=== PATIENT | female | born 1995 | race Caucasian/White ===

== ENCOUNTER 2018-03-12 10:01 | Emergency (ER) | payer OTHER ==
--- OUTSIDE RECORDS SUMMARY | 2018-03-12 10:03 | XMS REPORT ---
:1995 Author Organization eClinicalWorks Care Team Providers Name Role Phone Dao Pink Provider Role Unavailable Allergies, Adverse Reactions, Alerts Substance Reaction Event Type N.K.D.A. Info Not Available Non Drug Allergy Problems Problem Type Condition Code Onset Dates Condition Status Problem Depression with anxiety F41.8 Active Problem Elevated blood pressure reading R03.0 Active Problem PCOS (polycystic ovarian syndrome) E28.2 Active Assessment Sprain of right shoulder, S43.401A Active unspecified shoulder sprain type, initial encounter Problem Migraine without aura and with G43.001 Active status migrainosus, not intractable Problem Bipolar affective disorder, mixed F31.60 Active Medications Medication Code Code Instructions Start End Status Dosage System Date Date Metformin HCl [facility] 34138206548 500 MG Orally Active 1 tablet Once a day with a meal Diclofenac [facility] 51889593372 75 MG Orally February 05, Apr 06, Active 1 tablet Sodium Twice a day 2017 2017 with food or milk Treximet [facility] 69600744091 85-500 MG Orally Active not defined Trileptal [facility] 08493145605 600 MG Orally Active 1 tablet Twice a day NuvaRing [facility] 50920602297 0.12-0.015 Active 1 ring MG/24HR Vaginal Cambia [facility] 65652145879 50 MG Orally Active not defined Fluoxetine HCl [facility] 94568211125 40 MG Orally Active 1 capsule Once a day Results No Known Results Summary Purpose eClinicalWorks Submission
[2018-03-12] MEDS ORDERED: KETOROLAC 30 MG/ML INJ ONE (10:48)
[2018-03-12] MEDS ORDERED: CLINDAMYCIN IV 150 MG/ML (4 mL) VIAL ONE (10:50)
--- NOTE | 2018-03-12 10:52 | ER ---
Nurse's Notes [facility] Name: Marnie Ordaz Age: 22 yrs Sex: Female : 1995 Arrival Date: 03/12/2018 Time: 10:04 Bed 17 Private MD: Dao Pink Diagnosis: Cellulitis of left lower limb-foot Presentation: 03/12 10:10 Presenting complaint: Patient states: Left foot itching x 4 days, swelling x 2 days. hb Transition of care: patient was not received from another setting of care. Onset of symptoms was March 12, 2018. Risk Assessment: Do you want to hurt yourself or someone else? Patient reports no desire to harm self or others. Initial Sepsis Screen: Does the patient meet any 2 criteria? No. Patient's initial sepsis screen is negative. Does the patient have a suspected source of infection? No. Patient's initial sepsis screen is negative. Care prior to arrival: None. 10:10 Method Of Arrival: Ambulatory hb 10:10 Acuity: [place] 4 hb Triage Assessment: 10:25 General: Appears in no apparent distress. uncomfortable, Behavior is calm, cooperative, hj appropriate for age. Pain: Complains of pain in left foot. 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 - Social history:: Smoking status: Patient/guardian denies using tobacco. - Ebola Screening: : No symptoms or risks identified at this time. Screenin:25 Abuse screen: Denies threats or abuse. Denies injuries from another. Nutritional hj screening: No deficits noted. Tuberculosis screening: No symptoms or risk factors identified. Fall Risk None identified. Assessment: 10:25 Reassessment: see triage for assessment;. hj Vital Signs: 10:11 BP 142 / 91; Pulse 81; Resp 16; Temp 97.4; Pulse Ox 100% on R/A; Pain 0/10; hb 11:07 BP 120 / 89; Pulse 82; Resp 18; Pulse Ox 100% on R/A; hj ED Course: 10:04 Patient arrived in ED. sb2 10:04 Dao Pink MD is Private Physician. sb2 10:10 Nadia Clayton FNP-C [facility]. snw 10:10 Alex Biggs MD is Attending Physician. snw 10:11 Triage completed. hb 10:12 Arm band placed on left wrist. hb 10:24 Randy Chang, RN is Primary Nurse. hj 10:25 Patient has correct armband on for positive identification. Bed in low position. Call hj light in reach. Side rails up X 1. 10:50 Dao Pink MD is Referral Physician. snw 11:06 No provider procedures requiring assistance completed. Patient did not have IV access hj during this emergency room visit. Administered Medications: 10:40 Drug: Clindamycin 600 mg Route: IM; Site: left deltoid; hj 10:55 Follow up: Response: No adverse reaction hj 10:40 Drug: TORadol 60 mg Route: IM; Site: right deltoid; hj 10:55 Follow up: Response: No adverse reaction; Pain is decreased hj Outcome: 10:51 Discharge ordered by . snw 11:06 Discharged to home ambulatory. hj 11:06 Condition: stable 11:06 Discharge instructions given to patient, Instructed on discharge instructions, follow up and referral plans. medication usage, Demonstrated understanding of instructions, follow-up care, medications, Prescriptions given X 2. 11:07 Patient left the ED. hj Signatures: Nadia Clayton FNP-C CRYSTAL GROWING TECHNICIAN-Csnw Randy Chang RN RN Dilia Miller RN RN Suzanne Tom sb2
--- NOTE | 2018-03-12 10:52 | EDPHYS ---
Physician Documentation [facility] Name: Marnie Ordaz Age: 22 yrs Sex: Female : 1995 Arrival Date: 03/12/2018 Time: 10:04 Bed 17 Private MD: Dao Pink ED Physician Alex Biggs HPI: 03/12 10:44 This 22 yrs old Female presents to ER via Ambulatory with complaints of Foot snw Pain. 10:44 The patient presents with pain, swelling, tenderness. The complaints affect the medial snw aspect of left foot. Context: The problem was sustained at home, resulted from an unknown cause, the patient can partially bear weight, the patient is able to ambulate. Onset: The symptoms/episode began/occurred suddenly. Associated signs and symptoms: Pertinent positives: swelling, warmth, of the arch of left foot. Treatment prior to arrival includes: no previous treatment. Severity of symptoms: At their worst the symptoms were moderate, severe. The patient has not experienced similar symptoms in the past. It is unknown whether or not the patient has recently seen a physician. 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 - Social history:: Smoking status: Patient/guardian denies using tobacco. - Ebola Screening: : No symptoms or risks identified at this time. ROS: 10:42 Constitutional: Negative for fever, chills, and weight loss, Eyes: Negative for injury, snw pain, redness, and discharge, ENT: Negative for injury, pain, and discharge, Neck: Negative for injury, pain, and swelling, Cardiovascular: Negative for chest pain, palpitations, and edema, Respiratory: Negative for shortness of breath, cough, wheezing, and pleuritic chest pain, Abdomen/GI: Negative for abdominal pain, nausea, vomiting, diarrhea, and constipation, Back: Negative for injury and pain, : Negative for injury, bleeding, discharge, and swelling, MS/Extremity: Negative for injury and deformity, Neuro: Negative for headache, weakness, numbness, tingling, and seizure, Psych: Negative for depression, anxiety, suicide ideation, homicidal ideation, and hallucinations. 10:42 Skin: Positive for swelling, redness and itching to sole of left foot. Exam: 10:42 Constitutional: This is a well developed, well nourished patient who is awake, alert, snw and in no acute distress. Head/Face: Normocephalic, atraumatic. Eyes: Pupils equal round and reactive to light, extra-ocular motions intact. Lids and lashes normal. Conjunctiva and sclera are non-icteric and not injected. Cornea within normal limits. Periorbital areas with no swelling, redness, or edema. ENT: Nares patent. No nasal discharge, no septal abnormalities noted. Tympanic membranes are normal and external auditory canals are clear. Oropharynx with no redness, swelling, or masses, exudates, or evidence of obstruction, uvula midline. Mucous membranes moist. Neck: Trachea midline, no thyromegaly or masses palpated, and no cervical lymphadenopathy. Supple, full range of motion without nuchal rigidity, or vertebral point tenderness. No Meningismus. Chest/axilla: Normal chest wall appearance and motion. Nontender with no deformity. No lesions are appreciated. Cardiovascular: Regular rate and rhythm with a normal S1 and S2. No gallops, murmurs, or rubs. Normal PMI, no JVD. No pulse deficits. Respiratory: Lungs have equal breath sounds bilaterally, clear to auscultation and percussion. No rales, rhonchi or wheezes noted. No increased work of breathing, no retractions or nasal flaring. Abdomen/GI: Soft, non-tender, with normal bowel sounds. No distension or tympany. No guarding or rebound. No evidence of tenderness throughout. Back: No spinal tenderness. No costovertebral tenderness. Full range of motion. MS/ Extremity: Pulses equal, no cyanosis. Neurovascular intact. Full, normal range of motion. Neuro: Awake and alert, GCS 15, oriented to person, place, time, and situation. Cranial nerves II-XII grossly intact. Motor strength 5/5 in all extremities. Sensory grossly intact. Cerebellar exam normal. Normal gait. Psych: Awake, alert, with orientation to person, place and time. Behavior, mood, and affect are within normal limits. 10:42 Skin: Appearance: normal except for affected area, cellulitis, that is mild, well demarcated, on the sole of left foot with lymphangitis. Vital Signs: 10:11 BP 142 / 91; Pulse 81; Resp 16; Temp 97.4; Pulse Ox 100% on R/A; Pain 0/10; hb 11:07 BP 120 / 89; Pulse 82; Resp 18; Pulse Ox 100% on R/A; hj MDM: 10:30 Patient medically screened. snw 10:53 Data reviewed: vital signs, nurses notes. Data interpreted: Pulse oximetry: on room air snw is 100 %. Interpretation: normal. Counseling: I had a detailed discussion with the patient and/or guardian regarding: the historical points, exam findings, and any diagnostic results supporting the discharge/admit diagnosis, the presence of at least one elevated blood pressure reading (>120/80) during this emergency department visit, the need for outpatient follow up, to return to the emergency department if symptoms worsen or persist or if there are any questions or concerns that arise at home. Special discussion: I have referred the patient to see his PCP for further evaluation of high blood pressure. I discussed in detail with the patient the higher chance of wound infection based on his presenting history. Based on the history and exam findings, there is no indication for further emergent testing or inpatient evaluation. I discussed with the patient/guardian the need to see the primary care provider for further evaluation of the symptoms. Administered Medications: 10:40 Drug: Clindamycin 600 mg Route: IM; Site: left deltoid; hj 10:55 Follow up: Response: No adverse reaction hj 10:40 Drug: TORadol 60 mg Route: IM; Site: right deltoid; hj 10:55 Follow up: Response: No adverse reaction; Pain is decreased hj Disposition: 15:28 Co-signature as Attending Physician, Alex Biggs MD I agree with the assessment and mian plan of care. Disposition: 03/12/18 10:51 Discharged to Home. Impression: Cellulitis of left lower limb - foot. - Condition is Stable. - Discharge Instructions: Cellulitis, Adult, Hypertension, Lymphangitis, Adult. - Prescriptions for Clindamycin HCl 300 mg Oral Capsule - take 1 capsule by ORAL route every 6 hours for 10 days; 40 capsule. Diclofenac Sodium 75 mg Oral Tablet Sustained Release - take 1 tablet by ORAL route 2 times per day; 30 tablet. - Work release form, Medication Reconciliation Form, Thank You Letter, Antibiotic Education, Prescription Opioid Use form. - Follow up: Dao Pink MD; When: 1 - 2 days; Reason: Recheck today's complaints, Continuance of care, Re-evaluation by your physician. Follow up: Emergency Department; When: As needed; Reason: Worsening of condition. Signatures: Alex Biggs MD MD cha Therrien, Shelly, FUSING FURNACE LOADER-C FUSING FURNACE LOADER-Csnw Randy Chang, VIJAYA RN Dilia Miller RN RN Corrections: (The following items were deleted from the chart) 11:07 10:51 03/12/2018 10:51 Discharged to Home. Impression: Cellulitis of left lower limb - hj foot. Condition is Stable. Forms are Medication Reconciliation Form, Thank You Letter, Antibiotic Education, Prescription Opioid Use. Follow up: Dao Pink; When: 1 - 2 days; Reason: Recheck today's complaints, Continuance of care, Re-evaluation by your physician. Follow up: Emergency Department; When: As needed; Reason: Worsening of condition. snw
[2018-03-12 11:28] VITALS: TEMP 97.4; O2SAT 100
[2018-03-12 11:29] VITALS: BP 120/89
== END 2018-03-12 11:07 | disposition home or self-care (01) ==
LOC: ER 10:01
DX: L03.116 Cellulitis of left lower limb (principal)
CPT/HCPCS: 96372; 99283; S0077

== ENCOUNTER 2018-10-24 15:37 | Emergency (ER) | payer OTHER ==
--- OUTSIDE RECORDS SUMMARY | 2018-10-24 15:43 | XMS REPORT ---
[...] Status Dosage System Date Date Metformin HCl [facility] 05492391530 500 MG Orally Active 1 tablet Once a day with a meal Diclofenac [facility] 48010445466 75 MG Orally February 05, Apr 06, Active 1 tablet Sodium Twice a day 2017 2017 with food or milk Treximet [facility] 28142479727 85-500 MG Orally Active not defined Trileptal [facility] 20657037192 600 MG Orally Active 1 tablet Twice a day NuvaRing [facility] 84264836892 0.12-0.015 Active 1 ring MG/24HR Vaginal Cambia [facility] 33485571425 50 MG Orally Active not defined Fluoxetine HCl [facility] 32904211639 40 MG Orally Active 1 capsule Once a day Results No Known Results Summary Purpose eClinicalWorks Submission
--- OUTSIDE RECORDS SUMMARY | 2018-10-24 15:43 | XMS REPORT | Continuity of Care Document ---
:1995 Author Organization [facility] Address [address] [place] [address] Phone Unavailable Care Team Providers Name Role Phone SOLA MANNING MD Primary Care Physician Insurance Providers Guarantor Isaias Ordaz Address [address] [place] [address] Payer [facility] - Other Policy Number [id number] Subscriber's Name Sanju Turner Relationship Family/Other Group Number [id number] Group Name [employer] Advance Directives Directive Response Recorded Date/Time Name of Surrogate/Decision Maker NA 07/10/18 9:34am Patient/Family Given Education Material R/T Y - KR...07/10/18 07/10/18 9: 34am Directives? Chief Complaint and Reason for Visit Chief Complaint Chest Pain Reason for Visit Chest pain Problems Active ProblemsNo active problem information available. Past Problems Medical Problem Onset Date Status Chest pain Unknown Acute Medications No medication information available. Social History Smoking Status Start Date Stop Date Former smoker Hospital Discharge Instructions No hospital discharge instruction information available. Plan of Care Discharge Date 07/10/18 11:23am Instructions/Education Provided Nonspecific Chest Pain, Xcdg-te-Mtet Forms Provided Portal Welcome Letter Prescriptions See Medication Section Referrals SOLA MANNING MD Address: [address] [place] [address] Additional Instructions/Education see pvt in 1 week, return to ER if pain returns Functional Status No functional status information available. Allergies, Adverse Reactions, Alerts No known allergies. Immunizations No immunization information available. Vital Signs Acute Vital Signs Vital Response Date/Time Blood Pressure 114/68 mm Hg 07/10/2018 11:24am Pulse Pulse Rate (adult) 68 beats per minute (60 - 100) 07/10/2018 11:24am Respiratory Rate 18 breaths per minute (10 - 24) 07/10/2018 11:24am Temperature Source Oral 07/10/2018 9:10am Height 5 ft 2 in 07/10/2018 9:10am Weight 260 lb 07/10/2018 9:10am Body Mass Index 47.6 kg/m^2 07/10/2018 9:10am Results Laboratory Results Test Name Result Units Flags Reference Collection Result Comments Date/Time Date/Time White Blood Count 9.3 K/ul 4.0-11.5 07/10/2018 07/10/2018 9:54am 10:00am Red Blood Count 4.48 M/ul 3.80-5.20 07/10/2018 07/10/2018 9:54am 10:00am Hemoglobin 13.2 g/dl 10.5-15.7 07/10/2018 07/10/2018 9:54am 10:00am Hematocrit 40.4 % 34.0-50.0 07/10/2018 07/10/2018 9:54am 10:00am Mean Corpuscular 90.2 fl 78-98 07/10/2018 07/10/2018 Volume 9:54am 10:00am Mean Corpuscular 29.4 pg 26.2-33.4 07/10/2018 07/10/2018 Hemoglobin 9:54am 10:00am Mean Corpuscular 32.6 g/dl 31.5-36.2 07/10/2018 07/10/2018 Hemoglobin Concent 9:54am 10:00am Red Cell 12.5 % 11.5-15.5 07/10/2018 07/10/2018 Distribution Width 9:54am 10:00am Platelet Count 273 K/ul 137-338 07/10/2018 07/10/2018 9:54am 10:00am Mean Platelet 6.8 fl L 8.4-11.8 07/10/2018 07/10/2018 Volume 9:54am 10:00am Neutrophils (%) 62.1 % 44.4-80.1 07/10/2018 07/10/2018 (Auto) 9:54am 10:00am Lymphocytes (%) 29.0 % 10.0-50.0 07/10/2018 07/10/2018 (Auto) 9:54am 10:00am Monocytes (%) 4.6 % 3.6-12.04 07/10/2018 07/10/2018 (Auto) 9:54am 10:00am Eosinophils (%) 3.6 % 0.0-5.41 07/10/2018 07/10/2018 (Auto) 9:54am 10:00am Basophils (%) 0.7 % 0.0-0.79 07/10/2018 07/10/2018 (Auto) 9:54am 10:00am D-Dimer 256 ng/mL <500 07/10/2018 07/10/2018 9:54am 10:24am Random Glucose 106 mg/dL 74-106 07/10/2018 07/10/2018 9:54am 10:16am Blood Urea 12 mg/dL -07/10/2018 07/10/2018 Nitrogen 9:54am 10:16am Serum Osmolality 276 L 280-300 07/10/2018 07/10/2018 9:54am 10:16am Creatinine 0.7 mg/dL 0.50-0.90 07/10/2018 07/10/2018 9:54am 10:16am Glomerular > 60.00 07/10/2018 07/10/2018 GFR RESULTS ARE REPORTED IN mL/min/1.73m2. Filtration Rate 9:54am 10:16am Calc Normal GFR: >60mL/min Moderately decreased GFR: 30-59 mL/min Severely decreased GFR: 15-29 mL/min Kidney Failure (or Dialysis): <15 mL/min The calculated eGFR is not valid for patients younger than 18 years or older than 75 years. BUN/Creatinine 17.1 12-07/10/2018 07/10/2018 Ratio 9:54am 10:16am Sodium Level 138 mmol/L 135-145 07/10/2018 07/10/2018 9:54am 10:16am Potassium Level 4.6 mmol/L 3.5-5.2 07/10/2018 07/10/2018 9:54am 10:16am Chloride Level 101 mmol/L 98-108 07/10/2018 07/10/2018 9:54am 10:16am Carbon Dioxide 27 mmol/L 21-32 07/10/2018 07/10/2018 Level 9:54am 10:16am Anion Gap 14.6 mEq/L 12-20 07/10/2018 07/10/2018 9:54am 10:16am Calcium Level 9.4 mg/dL 8.6-10.0 07/10/2018 07/10/2018 9:54am 10:16am Total Protein 7.7 g/dL 6.6-8.7 07/10/2018 07/10/2018 9:54am 10:16am Albumin 4.5 g/dL 3.5-5.2 07/10/2018 07/10/2018 9:54am 10:16am Globulin 3.2 gm/dL 07/10/2018 07/10/2018 9:54am 10:16am Albumin/Globulin 1.4 >1.0 07/10/2018 07/10/2018 Ratio 9:54am 10:16am Total Bilirubin < 0.3 mg/dL 0.0-1.2 07/10/2018 07/10/2018 9:54am 10:16am Aspartate Amino 14 U/L L 15-32 07/10/2018 07/10/2018 Transf (AST/SGOT) 9:54am 10:16am Alanine 12 U/L 0-33 07/10/2018 07/10/2018 Aminotransferase 9:54am 10:16am (ALT/SGPT) HH-Zez-R-Type 45 pg/mL 0-125 07/10/2018 07/10/2018 Natriuretic 9:54am 10:20am Peptide Total Alkaline 65 U/L 35-105 07/10/2018 07/10/2018 Phosphatase 9:54am 10:16am Urine HCG, NEGATIVE NEG 07/10/2018 07/10/2018 Qualitative 9:48am 10:07am If a negative result is obtained but is suspected, a new specimen should be collected after 48-72 hours and tested. If waiting 48 hrs is not medically advisable, the test result should be confirmed with at quantitative hCG assay. Creatine Kinase 106 U/L 20-180 07/10/2018 07/10/2018 9:54am 10:16am Troponin I < 0.30 ng/mL 0.0-0.5 07/10/2018 07/10/2018 Published clinical studies have shown elevations of cTnI in 9:54am 10:21am patients with myocardial injury, as seen in unstable angina pectoris, cardiac contusions, and heart transplants. Elevations have also been seen in patients with rhabdomyolysis and polymyositis. Elevated troponin levels point to myocardial injury, but are not necessarily indicative of an ischemic mechanism. The term CA should be used when there is evidence of cardiac damage, as detected by marker proteins in a clinical setting consistent with myocardial ischemia. If the clinical circumstance suggests that an ischemic mechanism is unlikely, other causes of cardiac injury should be considered. For diagnostic purposes, the results should always be assessed in conjunction with the patient's medical history, clinical examination and other findings. Creatine Kinase MB 1.6 ng/ml 0.0-3.6 07/10/2018 07/10/2018 9:54am 10:21am DIAGNOSTIC CITERIA: CKMB CKMB RELATIVE INDEX SUGGESTIVE OF NON-AMI < or=5 N/A HANNA ZONE (INCONCLUSIVE) > 5 < or=4 SUGGESTIVE OF AMI >5 > 4 Procedures Procedure Status Date Provider(s) X-ray of chest, single view Completed 07/10/[address] MD Encounters Encounter Location Arrival/Admit Date Discharge/Depart Date Attending Provider Departed [place] 07/10/18 9:06am 07/10/18 11:23am [facility] Recent Diagnosis
--- OUTSIDE RECORDS SUMMARY | 2018-10-24 15:43 | XMS REPORT ---
:1995 Author Organization eClinicalWorks Care Team Providers Name Role Phone Charly Wong Provider Role Unavailable Allergies, Adverse Reactions, Alerts Substance Reaction Event Type N.K.D.A. 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 Problem Bipolar affective disorder, mixed F31.60 Active Problem PCOS (polycystic ovarian syndrome) E28.2 Active Problem Arthritis of right M19.011 Active acromioclavicular joint Problem Migraine without aura and with G43.001 Active status migrainosus, not intractable Problem Depression with anxiety F41.8 Active Problem Elevated blood pressure reading R03.0 Active Medications Medication Code System Code Instructions Start End Date Status Dosage Date Ibuprofen [facility] 89503083456 200 MG Orally Active 1 tablet Three times a day with food or milk as needed Results No Known Results Summary Purpose [facility] Submission
--- OUTSIDE RECORDS SUMMARY | 2018-10-24 15:43 | XMS REPORT ---
:1995 Author Organization eClinicalWorks Care Team Providers Name Role Phone Charly Wong Provider Role Unavailable Allergies, Adverse Reactions, Alerts Substance Reaction Event Type N.K.D.A. Info Not Available Non Drug Allergy Problems Problem Type Condition Code Onset Dates Condition Status Assessment Pain in joint of right shoulder M25.511 Active Assessment Arthritis of right M19.011 Active acromioclavicular [...] Start End Date Status Dosage Date Ibuprofen [facility] 40210670893 200 MG Orally Active 1 tablet Three times a day with food or milk as needed Results No Known Results Summary Purpose eClinicalWorks Submission
[2018-10-24 17:04] LABS: Absolute Lymphocytes (CBC) 0.8 K/uL (0.7-4.9); Absolute Monocytes 0.6 K/uL (0.1-1.3); Absolute Neutrophil 5.3 K/uL (1.8-8.0); Basophils % 0.5 % (0-1.3); Eosinophils % 0.9 % (0-4.4); Hematocrit 38.5 % (36.0-45.0); Lymphocytes % 12.5 % (15.3-44.8); MPV 7.2 fL (7.6-11.3); Monocytes % 8.6 % (3.3-12.3); RBC Red Blood Cell Count 4.43 M/uL (3.86-4.86)
[2018-10-24 17:22] LABS: ALT/SGPT 23 U/L (12-78); AST/SGOT 15 U/L (15-37); Albumin 3.6 g/dL (3.4-5.0); Alkaline Phosphatase 68 U/L (45-117); BUN Blood Urea Nitrogen 10 mg/dL (7-18); Bicarbonate 25 mmol/L (21-32); Bilirubin Direct < 0.1 mg/dL (0-0.2); Bilirubin Total 0.3 mg/dL (0.2-1.0); Glucose Level 94 mg/dL (74-106); Lipase 76 U/L (73-393); Potassium 3.9 mmol/L (3.5-5.1); Protein, Total 7.7 g/dL (6.4-8.2); Sodium Level 137 mmol/L (136-145)
[2018-10-24] MEDS ORDERED: KETOROLAC 30 MG/ML INJ ONE (17:24)
[2018-10-24] MEDS ORDERED: NA CHLORIDE 0.9% 1,000 ML ONE (17:24)
[2018-10-24 17:49] LABS: Urine Bacteria >50 /HPF (<20); Urine Culture Reflex Order NOT NEEDED; Urine Trichomonas PRESENT (NONE SEEN)
--- NOTE | 2018-10-24 18:38 | RAD REPORT ---
EXAM DESCRIPTION: CT - Abdomen Pelvis W Contrast - 10/24/2018 6:17 pm CLINICAL HISTORY: Abdominal pain/epigastric pain COMPARISON: none. TECHNIQUE: Computed axial tomography of the abdomen pelvis was obtained. 100 cc Isovue-300 was admin istered intravenously. Oral contrast was not requested which limits evaluation of bowel. All CT scans are performed using dose optimization technique as appropriate and may include automated exposure control or mA/KV adjustment according to patient size. FINDINGS: The gallbladder has been removed The liver, spleen, pancreas, and adrenals appear unremarkable. Mild bilateral hydronephrosis. A genitourinary calculus is not seen. There is no evidence of diverticulitis. The appendix is normal IMPRESSION: Mild bilateral hydronephrosis. A genitourinary calculus is not seen. The ureters are nor mal caliber.
[2018-10-24 19:22] LABS: Urine Blood 1+ (NEG); Urine Glucose NEGATIVE (NEG); Urine Protein NEGATIVE (NEG); Urine Specific Gravity 1.025 (1.005-1.030)
--- NOTE | 2018-10-24 21:01 | EDPHYS ---
Physician Documentation [facility] Name: Marnie Ordaz Age: 23 yrs Sex: Female : 1995 Arrival Date: 10/24/2018 Time: 15:41 Bed 30 Private MD: None, None ED Physician Neville Sawyer HPI: 10/24 17:00 This 23 yrs old Female presents to ER via Ambulatory with complaints of pm1 Abdominal Pain. 17:00 The patient presents with abdominal pain in the epigastric area. pm1 17:00 Onset: The symptoms/episode began/occurred 2 day(s) ago. The symptoms do not radiate. pm1 Associated signs and symptoms: Pertinent negatives: nausea, vomiting, and diarrhea, chest pain, dysuria, fever, shortness of breath, vaginal discharge. The symptoms are described as achy. Modifying factors: The symptoms are alleviated by nothing, the symptoms are aggravated by food. Severity of pain: in the emergency department the pain is actually worse. The patient has experienced a previous episode, many years ago, Feels like her gallstones but her gallbladder has been removed. The patient has not recently seen a physician. 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 - Social history:: Smoking status: Patient/guardian denies using tobacco. - Ebola Screening: : Patient denies travel to an Ebola-affected area in the 21 days before illness onset. ROS: 17:00 Constitutional: Negative for fever, chills, and weight loss, Eyes: Negative for injury, pm1 pain, redness, and discharge, ENT: Negative for injury, pain, and discharge, Neck: Negative for injury, pain, and swelling, Cardiovascular: Negative for chest pain, palpitations, and edema, Respiratory: Negative for shortness of breath, cough, wheezing, and pleuritic chest pain. 17:00 Back: Negative for injury and pain, : Negative for injury, bleeding, discharge, and swelling, MS/Extremity: Negative for injury and deformity, Skin: Negative for injury, rash, and discoloration, Neuro: Negative for headache, weakness, numbness, tingling, and seizure. 17:00 Abdomen/GI: Positive for abdominal pain, Negative for nausea, vomiting, and diarrhea, constipation. Exam: 17:00 Constitutional: This is a well developed, well nourished patient who is awake, alert, pm1 and in no acute distress. Head/Face: Normocephalic, atraumatic. Eyes: Pupils equal round and reactive to light, extra-ocular motions intact. Lids and lashes normal. Conjunctiva and sclera are non-icteric and not injected. Cornea within normal limits. Periorbital areas with no swelling, redness, or edema. ENT: Nares patent. No nasal discharge, no septal abnormalities noted. Tympanic membranes are normal and external auditory canals are clear. Oropharynx with no redness, swelling, or masses, exudates, or evidence of obstruction, uvula midline. Mucous membranes moist. Neck: Trachea midline, no thyromegaly or masses palpated, and no cervical lymphadenopathy. Supple, full range of motion without nuchal rigidity, or vertebral point tenderness. No Meningismus. Chest/axilla: Normal chest wall appearance and motion. Nontender with no deformity. No lesions are appreciated. Cardiovascular: Regular rate and rhythm with a normal S1 and S2. No gallops, murmurs, or rubs. Normal PMI, no JVD. No pulse deficits. Respiratory: Lungs have equal breath sounds bilaterally, clear to auscultation and percussion. No rales, rhonchi or wheezes noted. No increased work of breathing, no retractions or nasal flaring. 17:00 Back: No spinal tenderness. No costovertebral tenderness. Full range of motion. Skin: Warm, dry with normal turgor. Normal color with no rashes, no lesions, and no evidence of cellulitis. MS/ Extremity: Pulses equal, no cyanosis. Neurovascular intact. Full, normal range of motion. 17:00 Abdomen/GI: Inspection: abdomen appears normal, Bowel sounds: normal, Palpation: soft, mild abdominal tenderness, in the epigastric area, mass, is not appreciated, rebound tenderness, is not appreciated. 17:00 Neuro: Orientation: is normal, Motor: is normal, moves all fours. Vital Signs: 15:55 BP 117 / 69; Pulse 89; Resp 17; Temp 99.2(TE); Pulse Ox 100% on R/A; Weight 116.57 kg tw2 (R); Height 5 ft. 3 in. (160.02 cm); Pain 7/10; 19:19 BP 111 / 61; Pulse 86; Resp 18; Pulse Ox 99% on R/A; tl3 22:11 BP 124 / 77; Pulse 88; Resp 18; Pulse Ox 100% on R/A; tl3 15:55 Body Mass Index 45.53 (116.57 kg, 160.02 cm) tw2 MDM: 16:37 Patient medically screened. pm1 20:59 Refusal of service: The patient/guardian displays adequate decision making capability pm1 and despite a detailed discussion of alternatives, benefits, risks, and consequences refuses: pelvic examination. Patient is not having pelvic pain or discharge so she does not want the examination. Will give the patient treatment for trichomoniasis, gonorrhea, and chlamydia. 20:59 Data reviewed: vital signs. Data interpreted: Pulse oximetry: on room air is 99 %. pm1 Interpretation: normal. Counseling: I had a detailed discussion with the patient and/or guardian regarding: the historical points, exam findings, and any diagnostic results supporting the discharge/admit diagnosis, lab results, radiology results, the need for outpatient follow up, to return to the emergency department if symptoms worsen or persist or if there are any questions or concerns that arise at home. 10/24 16:47 Order name: Basic Metabolic Panel; Complete Time: 17:35 pm1 10/24 16:47 Order name: CBC with Diff; Complete Time: 17:35 pm1 10/24 16:47 Order name: Creatinine for Radiology; Complete Time: 17:35 pm1 10/24 16:47 Order name: Hepatic Function; Complete Time: 17:35 pm1 10/24 16:47 Order name: Lipase; Complete Time: 17:35 pm1 10/24 16:48 Order name: Urine Microscopic Only; Complete Time: 17:51 pm1 10/24 16:47 Order name: CT Abd/Pelvis - W/Contrast: IV contrast only; Complete Time: 18:46 pm1 10/24 16:52 Order name: Urine Dipstick--Ancillary (enter results); Complete Time: 19:56 em1 10/24 16:52 Order name: Urine --Ancillary (enter results); Complete Time: 19:56 em1 10/24 18:09 Order name: Strep; Complete Time: 19:56 pm1 10/24 19:11 Order name: Throat Culture [facility] 10/24 16:47 Order name: IV Saline Lock; Complete Time: 17:03 pm1 10/24 16:47 Order name: Labs collected and sent; Complete Time: 17:03 pm1 10/24 16:48 Order name: Urine Dipstick-Ancillary (obtain specimen); Complete Time: 16:49 pm1 10/24 16:48 Order name: Urine Test (obtain specimen); Complete Time: 16:49 pm1 Administered Medications: 17:49 Drug: NS 0.9% 1000 ml Route: IV; Rate: 1000 ml; Site: right antecubital; sg 19:22 Follow up: IV Status: Completed infusion; IV Intake: 1000ml tl3 17:49 Drug: Pepcid 20 mg Route: IVP; Site: right antecubital; sg 19:21 Follow up: Response: No adverse reaction tl3 17:49 Drug: TORadol 30 mg Route: IVP; Site: right antecubital; sg 19:21 Follow up: Response: No adverse reaction tl3 21:26 Drug: [place] 5 mg-325 mg 1 tabs Route: PO; tl3 22:05 Follow up: Response: Pain is decreased tl3 21:27 Drug: Rocephin (cefTRIAXone) 250 mg Route: IM; Site: right vastus lateralis; tl3 22:05 Follow up: Response: No adverse reaction tl3 21:27 Drug: AZITHromycin 1 grams Route: PO; tl3 22:05 Follow up: Response: No adverse reaction tl3 21:36 Drug: Flagyl 2 grams Route: PO; tl3 22:05 Follow up: Response: No adverse reaction tl3 Disposition: 10/25 07:39 Co-signature as Attending Physician, Neville Sawyer MD I agree with the assessment and kdr plan of care. Disposition: 10/24/18 21:01 Discharged to Home. Impression: Trichomoniasis, Unspecified abdominal pain, Urinary tract infection, site not specified. - Condition is Stable. - Discharge Instructions: Abdominal Pain, Adult, Trichomoniasis, Urinary Tract Infection, Adult. - Prescriptions for Tylenol- Codeine #3 300-30 mg Oral Tablet - take 2 tablets by ORAL route every 6 hours As needed; 20 tablet. Augmentin 875- 125 mg Oral Tablet - take 1 tablet by ORAL route every 12 hours for 10 days; 20 tablet. - Medication Reconciliation Form, Thank You Letter, Antibiotic Education, Prescription Opioid Use, Work release form form. - Follow up: Emergency Department; When: As needed; Reason: Worsening of condition. Follow up: Private Physician; When: 2 - 3 days; Reason: Recheck today's complaints, Continuance of care, Re-evaluation by your physician. - Problem is new. - Symptoms have improved. Signatures: Dispatcher [employer] EDMS Silver Gutiérrez RN RN sg Neville Sawyer MD MD [facility] Kenji Aparicio, ALEX CHARGE AUTHORIZER pm1 Serina Morales RN RN tw2 Trini Ambriz RN RN tl3 Corrections: (The following items were deleted from the chart) 10/24 21:10 21:01 10/24/2018 21:01 Discharged to Home. Impression: Trichomoniasis; Unspecified pm1 abdominal pain. Condition is Stable. Forms are Medication Reconciliation Form, Thank You Letter, Antibiotic Education, Prescription Opioid Use. Follow up: Emergency Department; When: As needed; Reason: Worsening of condition. Follow up: Private Physician; When: 2 - 3 days; Reason: Recheck today's complaints, Continuance of care, Re-evaluation by your physician. Problem is new. Symptoms have improved. pm1 22:12 21:10 10/24/2018 21:01 Discharged to Home. Impression: Trichomoniasis; Unspecified tl3 abdominal pain; Urinary tract infection, site not specified. Condition is Stable. Discharge Instructions: Abdominal Pain, Adult, Trichomoniasis. Prescriptions for Tylenol-Codeine #3 300-30 mg Oral Tablet - take 2 tablets by ORAL route every 6 hours As needed; 20 tablet. and Forms are Medication Reconciliation Form, Thank You Letter, Antibiotic Education, Prescription Opioid Use. Follow up: Emergency Department; When: As needed; Reason: Worsening of condition. Follow up: Private Physician; When: 2 - 3 days; Reason: Recheck today's complaints, Continuance of care, Re-evaluation by your physician. Problem is new. Symptoms have improved. pm1
--- NOTE | 2018-10-24 21:01 | ER ---
Nurse's Notes [facility] Name: Marnie Ordaz Age: 23 yrs Sex: Female : 1995 Arrival Date: 10/24/2018 Time: 15:41 Bed 30 Private MD: None, None Diagnosis: Trichomoniasis;Unspecified abdominal pain;Urinary tract infection, site not specified Presentation: 10/24 15:54 Presenting complaint: Patient states: Monday i started having a really sharp pain right tw2 in the middle of my stomach, everytime i eat or drink its a sharp pain, this happened before and it was gallbladder. Transition of care: patient was not received from another setting of care. Onset of symptoms was October 24, 2018. Risk Assessment: Do you want to hurt yourself or someone else? Patient reports no desire to harm self or others. Initial Sepsis Screen: Does the patient meet any 2 criteria? No. Patient's initial sepsis screen is negative. Does the patient have a suspected source of infection? No. Patient's initial sepsis screen is negative. Care prior to arrival: None. 15:54 Method Of Arrival: Ambulatory tw2 15:54 Acuity: [place] 3 tw2 15:55 Note pt also c/o sore throat. tw2 Triage Assessment: 15:56 General: Appears uncomfortable, Behavior is calm, cooperative, appropriate for age. tw2 Pain: Complains of pain in abdomen. GI: Reports lower abdominal pain, upper abdominal pain, nausea. 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 - Social history:: Smoking status: Patient/guardian denies using tobacco. - Ebola Screening: : Patient denies travel to an Ebola-affected area in the 21 days before illness onset. Screenin:19 Abuse screen: Denies threats or abuse. Nutritional screening: No deficits noted. tl3 Tuberculosis screening: Fall Risk None identified. Assessment: 19:19 General: Appears in no apparent distress. comfortable, well groomed, well developed, tl3 well nourished, Behavior is calm, cooperative, appropriate for age. Neuro: Level of Consciousness is awake, alert, obeys commands, Oriented to person, place, time, situation, Appropriate for age. Cardiovascular: Patient's skin is warm and dry. Respiratory: Airway is patent Respiratory effort is even, unlabored, Respiratory pattern is regular, symmetrical. GI: Bowel sounds present X 4 quads. Abd is soft and non tender. : No signs and/or symptoms were reported regarding the genitourinary system. EENT: No signs and/or symptoms were reported regarding the EENT system. Derm: No signs and/or symptoms reported regarding the dermatologic system. Musculoskeletal: No signs and/or symptoms reported regarding the musculoskeletal system. 22:04 Reassessment: Patient appears in no apparent distress at this time. No changes from tl3 previously documented assessment. Patient and/or family updated on plan of care and expected duration. Pain level reassessed. Patient is alert, oriented x 3, equal unlabored respirations, skin warm/dry/pink. pt being discharged. Vital Signs: 15:55 BP 117 / 69; Pulse 89; Resp 17; Temp 99.2(TE); Pulse Ox 100% on R/A; Weight 116.57 kg tw2 (R); Height 5 ft. 3 in. (160.02 cm); Pain 7/10; 19:19 BP 111 / 61; Pulse 86; Resp 18; Pulse Ox 99% on R/A; tl3 22:11 BP 124 / 77; Pulse 88; Resp 18; Pulse Ox 100% on R/A; tl3 15:55 Body Mass Index 45.53 (116.57 kg, 160.02 cm) tw2 ED Course: 15:41 Patient arrived in ED. dl4 15:41 None, None is Private Physician. dl4 15:55 Triage completed. tw2 15:56 Arm band placed on. tw2 16:36 Kenji Aparicio NP is PHCP. pm1 16:36 Neville Sawyer MD is Attending Physician. pm1 16:50 Radiology exam delayed due to lab results not completed at this time. (BUN/Creatinine). jg6 17:03 Initial lab(s) drawn, by me, sent to lab. Urine collected: clean catch specimen, clear. ms Inserted saline lock: 20 gauge in right antecubital area, using aseptic technique. Blood collected. 17:18 Radiology exam delayed due to lab results not completed at this time. (BUN/Creatinine). jg6 17:[address] via wheelchair. jg6 17:49 Silver Gutiérrez, RN is Primary Nurse. sg 18:13 CT completed. Patient tolerated procedure well. Patient moved back from CT. nj 18:18 CT Abd/Pelvis - W/Contrast: IV contrast only In Process Unspecified. EDMS 19:09 Primary Nurse role handed off by Silver Gutiérrez, RN tl3 19:09 Trini Ambriz, VIJAYA is Primary Nurse. tl3 19:19 Patient has correct armband on for positive identification. Placed in gown. Bed in low tl3 position. Call light in reach. Side rails up X 1. Pulse ox on. NIBP on. Warm blanket given. 19:19 No provider procedures requiring assistance completed. tl3 22:04 IV discontinued, intact, bleeding controlled, No redness/swelling at site. Pressure tl3 dressing applied. Administered Medications: 17:49 Drug: NS 0.9% 1000 ml Route: IV; Rate: 1000 ml; Site: right antecubital; sg 19:22 Follow up: IV Status: Completed infusion; IV Intake: 1000ml tl3 17:49 Drug: Pepcid 20 mg Route: IVP; Site: right antecubital; sg 19:21 Follow up: Response: No adverse reaction tl3 17:49 Drug: TORadol 30 mg Route: IVP; Site: right antecubital; sg 19:21 Follow up: Response: No adverse reaction tl3 21:26 Drug: [place] 5 mg-325 mg 1 tabs Route: PO; tl3 22:05 Follow up: Response: Pain is decreased tl3 21:27 Drug: Rocephin (cefTRIAXone) 250 mg Route: IM; Site: right vastus lateralis; tl3 22:05 Follow up: Response: No adverse reaction tl3 21:27 Drug: AZITHromycin 1 grams Route: PO; tl3 22:05 Follow up: Response: No adverse reaction tl3 21:36 Drug: Flagyl 2 grams Route: PO; tl3 22:05 Follow up: Response: No adverse reaction tl3 Intake: 19:22 IV: 1000ml; Total: 1000ml. tl3 Outcome: 21:01 Discharge ordered by . pm1 22:04 Discharged to home ambulatory. tl3 22:04 Condition: stable 22:04 Discharge instructions given to patient. 22:04 Instructed on stressed follow up with PCP to be retested to make sure STD status is cleared, partner needs to be tested as well Demonstrated understanding of Prescriptions given X 2. 22:12 Patient left the ED. tl3 Signatures: Dispatcher [employer] EDSilver Shankar, RN RN Viky Henley ms, Patrick, TECHNICAL PROJECT LEAD TECHNICAL PROJECT LEAD pm1 Serina Morales RN RN tw2 Guy Logan Tammy, RN RN tl3 Gracie Lott6 Pranav Hammond dl4
[2018-10-24] MEDS ORDERED: HYDROCODONE/APAP 5/325 MG TAB ONE (21:28)
[2018-10-24] MEDS ORDERED: AZITHROMYCIN 250 MG TAB ONE (21:28)
[2018-10-24] MEDS ORDERED: CEFTRIAXONE 250 MG/VIAL ONE (21:28)
[2018-10-24] MEDS ORDERED: metroNIDAZOLE 500 MG TABLET ONE (21:28)
[2018-10-24] MEDS ORDERED: WATER FOR INJ,STERILE 10 ML ONE (21:29)
[2018-10-24 22:19] VITALS: TEMP 99.2
[2018-10-24 22:22] VITALS: BP 124/77; O2SAT 100
== END 2018-10-24 22:12 | disposition home or self-care (01) ==
LOC: ER 15:37
DX: N39.0 Urinary tract infection, site not specified (principal); A59.9 Trichomoniasis, unspecified
CPT/HCPCS: 36415; 74177; 80048; 80076; 81003; 81015; 81025; 83690; 85025; 87070; 87081; 96361; 96372; 96374; 96375; 99284; J0696; J7030; Q9967

== ENCOUNTER 2018-11-13 22:19 | Emergency (ER) | payer OTHER ==
--- OUTSIDE RECORDS SUMMARY | 2018-11-13 22:22 | XMS REPORT ---
[...] Start End Date Status Dosage Date Ibuprofen [facility] 48486913643 200 MG Orally Active 1 tablet Three times a day with food or milk as needed Results No Known Results Summary Purpose [employer]Clinical[employer] Submission
--- OUTSIDE RECORDS SUMMARY | 2018-11-13 22:22 | XMS REPORT ---
[...] Status Dosage System Date Date Metformin HCl [facility] 79087367477 500 MG Orally Active 1 tablet Once a day with a meal Diclofenac [facility] 18126648068 75 MG Orally February 05, Apr 06, Active 1 tablet Sodium Twice a day 2017 2017 with food or milk Treximet [facility] 52074077472 85-500 MG Orally Active not defined Trileptal [facility] 98453230345 600 MG Orally Active 1 tablet Twice a day NuvaRing [facility] 38110687222 0.12-0.015 Active 1 ring MG/24HR Vaginal Cambia [facility] 38738661347 50 MG Orally Active not defined Fluoxetine HCl [facility] 96358515393 40 MG Orally Active 1 capsule Once a day Results No Known Results Summary Purpose eClinicalWorks Submission
--- OUTSIDE RECORDS SUMMARY | 2018-11-13 22:22 | XMS REPORT ---
[...] Start End Date Status Dosage Date Ibuprofen [facility] 09949809966 200 MG Orally Active 1 tablet Three times a day with food or milk as needed Results No Known Results Summary Purpose [employer] Submission
[2018-11-13] MEDS ORDERED: KETOROLAC 30 MG/ML INJ ONE (23:04)
--- NOTE | 2018-11-14 00:11 | EDPHYS ---
Physician Documentation [facility] Name: Marnie Ordaz Age: 23 yrs Sex: Female : 1995 Arrival Date: 11/13/2018 Time: 22:21 Bed 7 Private MD: Dao Pink ED Physician Lux Fernandez HPI: 11/13 22:33 This 23 yrs old Female presents to ER via Ambulatory with complaints of Wrist jmm Pain. 22:33 The patient or guardian reports injury, pain. Onset: The symptoms/episode jmm began/occurred acutely, 1 week(s) ago. Modifying factors:. Associated signs and symptoms: Pertinent negatives: fever, numbness distally, tingling distally. This is a 23 year old female with a history of asthma that presents to the ED with complaints of left wrist pain beginning 1 week ago after lift a heavy object. Patient states she felt a pop. Patient denies other injury. . Historical: - Allergies: 22:29 No Known Allergies; lp1 - Home Meds: 22:29 None [Active]; lp1 - PMHx: 22:29 Asthma; Bipolar disorder; lp1 - PSHx: 22:29 ; Cholecystectomy; Tonsillectomy; Adenoids; lp1 - Immunization history:: Adult Immunizations up to date. - Social history:: Smoking status: Patient/guardian denies using tobacco. - Ebola Screening: : No symptoms or risks identified at this time. ROS: 22:33 Constitutional: Negative for fever, chills, and weight loss. jm 22:33 MS/extremity: Positive for injury or acute deformity, pain. 22:33 All other systems are negative. Exam: 22:33 Hand exam: [facility] 22:33 Skin: Appearance: Color: normal in color. 22:33 Constitutional: This is a well developed, well nourished patient who is awake, alert, and in no acute distress. Head/Face: atraumatic. Eyes: EOMI, no conjunctival erythema appreciated ENT: Moist Mucus Membranes Neck: Trachea midline, Supple Chest/axilla: Normal chest wall appearance and motion. Cardiovascular: Regular rate and rhythm. No edema appreciated Respiratory: Normal respirations, no respiratory distress appreciated Abdomen/GI: Non distended, soft Skin: General appearance color normal 22:33 Musculoskeletal/extremity: ROM: painful flexion of the left wrist, Left wrist pain is localized to the ulnar side, no snuffbox tenderness is appreciated, no swelling is appreciated, full radial pulse, compartments are soft, NVI. 22:33 Skin: Appearance: Color: normal in color. 22:33 Neuro: Orientation: is normal, Mentation: is normal, Memory: is normal, Gait: is steady. 22:33 Psych: Behavior/mood is pleasant, cooperative. Vital Signs: 22:29 BP 136 / 85; Pulse 88; Resp 16; Temp 98.4(TE); Pulse Ox 100% on R/A; Weight 112.04 kg; lp1 Height 5 ft. 3 in. (160.02 cm); Pain 8/10; 23:45 BP 128 / 79; Pulse 60; Resp 18; Pulse Ox 97% on R/A; ea 22:29 Body Mass Index 43.75 (112.04 kg, 160.02 cm) lp1 MDM: 22:33 Patient medically screened. [facility] 11/14 00:09 Data reviewed: vital signs, nurses notes. Counseling: I had a detailed discussion with tariq the patient and/or guardian regarding: the historical points, exam findings, and any diagnostic results supporting the discharge/admit diagnosis, radiology results, the need for outpatient follow up, to return to the emergency department if symptoms worsen or persist or if there are any questions or concerns that arise at home. 00:09 ED course: Patient states that she feels much better after adminstration of splint and [facility] nsaid administration. Patient is advised to follow up with Dr. Wong for reevaluation. Symptoms appear consistent with sprain. . 11/13 22:40 Order name: Wrist Left (3 View) XRAY [facility] 11/13 22:40 Order name: Wrist Splint; Complete Time: 23:00 [facility] Administered Medications: 11/13 23:00 Drug: Ketorolac 30 mg Route: IM; Site: right deltoid; ea 23:57 Follow up: Response: No adverse reaction; Pain is decreased ea Disposition: 11/14 00:57 Co-signature as Attending Physician, Lux Fernandez MD. pkl Disposition: 11/14/18 00:10 Discharged to Home. Impression: Other specified sprain of left wrist. - Condition is Stable. - Discharge Instructions: Wrist Sprain. - Prescriptions for Ibuprofen 800 mg Oral Tablet - take 1 tablet by ORAL route every 8 hours As needed take with food; 30 tablet. - Medication Reconciliation Form, Thank You Letter, Antibiotic Education, Prescription Opioid Use, Work release form form. - Follow up: Charly Wong MD; When: 2 - 3 days; Reason: Recheck today's complaints, Continuance of care, Re-evaluation by your physician. Signatures: Dispatcher [employer] EDMS Lux Fernandez MD MD pkl Mickail, Joel, PA PA jmm Pena, Laura, RN RN lp1 Sabiha Miranda RN RN ea Corrections: (The following items were deleted from the chart) 00:26 00:10 11/14/2018 00:10 Discharged to Home. Impression: Other specified sprain of left ea wrist. Condition is Stable. Forms are Medication Reconciliation Form, Thank You Letter, Antibiotic Education, Prescription Opioid Use. Follow up: Dr. Charly Wong; When: 2 - 3 days; Reason: Recheck today's complaints, Continuance of care, Re-evaluation by your physician. tariq
--- NOTE | 2018-11-14 00:11 | ER ---
Nurse's Notes [facility] Name: Marnie Ordaz Age: 23 yrs Sex: Female : 1995 Arrival Date: 11/13/2018 Time: 22:21 Bed 7 Private MD: Dao Pink Diagnosis: Other specified sprain of left wrist Presentation: 11/13 22:27 Presenting complaint: Patient states: Left wrist pain since Monday; Denies any lp1 trauma, states doing yard work prior to left wrist pain. Transition of care: patient was not received from another setting of care. Onset of symptoms was November 13, 2018. Risk Assessment: Do you want to hurt yourself or someone else? Patient reports no desire to harm self or others. Initial Sepsis Screen: Does the patient meet any 2 criteria? No. Patient's initial sepsis screen is negative. Does the patient have a suspected source of infection? No. Patient's initial sepsis screen is negative. Care prior to arrival: None. 22:27 Method Of Arrival: Ambulatory lp1 22:27 Acuity: FLORENCE 4 lp1 Historical: - Allergies: 22:29 No Known Allergies; lp1 - Home Meds: 22:29 None [Active]; lp1 - PMHx: 22:29 Asthma; Bipolar disorder; lp1 - PSHx: 22:29 ; Cholecystectomy; Tonsillectomy; Adenoids; lp1 - Immunization history:: Adult Immunizations up to date. - Social history:: Smoking status: Patient/guardian denies using tobacco. - Ebola Screening: : No symptoms or risks identified at this time. Screenin:29 Abuse screen: Denies threats or abuse. Denies injuries from another. Nutritional lp1 screening: No deficits noted. Tuberculosis screening: No symptoms or risk factors identified. Fall Risk None identified. Assessment: 23:00 General: Appears in no apparent distress. Pain: Complains of pain in medial aspect of ea left wrist Pain currently is 8 out of 10 on a pain scale. Quality of pain is described as aching. Neuro: Level of Consciousness is awake, alert, obeys commands, Oriented to person, place, time, situation. Cardiovascular: Patient's skin is warm and dry. Respiratory: Airway is patent Respiratory effort is even, unlabored, Respiratory pattern is regular, symmetrical. Derm: Skin is pink, warm \T\ dry. Musculoskeletal: Reports pain in lateral aspect of left wrist. 23:53 Reassessment: Patient and/or family updated on plan of care and expected duration. Pain ea level reassessed. Patient is alert, oriented x 3, equal unlabored respirations, skin warm/dry/pink. 11/14 00:25 Reassessment: Patient and/or family updated on plan of care and expected duration. Pain ea level reassessed. Patient is alert, oriented x 3, equal unlabored respirations, skin warm/dry/pink. Discharge instruction given to patient, verbalized the understanding of instruction Patient states feeling better. Vital Signs: 11/13 22:29 BP 136 / 85; Pulse 88; Resp 16; Temp 98.4(TE); Pulse Ox 100% on R/A; Weight 112.04 kg; lp1 Height 5 ft. 3 in. (160.02 cm); Pain 8/10; 23:45 BP 128 / 79; Pulse 60; Resp 18; Pulse Ox 97% on R/A; ea 22:29 Body Mass Index 43.75 (112.04 kg, 160.02 cm) lp1 ED Course: 22:21 Patient arrived in ED. am2 22:22 Dao Pink MD is Private Physician. am2 22:28 Triage completed. lp1 22:29 Arm band placed on right wrist. lp1 22:32 Juan Carlos Villaseñor PA is PHCP. jmm 22:32 Lux Fernandez MD is Attending Physician. jmm 22:47 Sabiha Miranda, VIJAYA is Primary Nurse. ea 22:59 Wrist Left (3 View) XRAY In Process Unspecified. EDMS 23:01 Patient has correct armband on for positive identification. Placed in gown. Bed in low ea position. Call light in reach. Side rails up X 1. 11/14 00:09 Charly Wong MD is Referral Physician. [facility] 00:25 No provider procedures requiring assistance completed. Patient did not have IV access ea during this emergency room visit. Administered Medications: 11/13 23:00 Drug: Ketorolac 30 mg Route: IM; Site: right deltoid; ea 23:57 Follow up: Response: No adverse reaction; Pain is decreased ea Outcome: 11/14 00:10 Discharge ordered by . jmm 00:26 Discharged to home ambulatory. jacklyn 00:26 Condition: improved 00:26 Discharge instructions given to patient, Instructed on discharge instructions, follow up and referral plans. medication usage, Demonstrated understanding of instructions, follow-up care, medications, Prescriptions given X 1. 00:26 Patient left the ED. jacklyn Signatures: Dispatcher [employer] EDMS Juan Carlos Villaseñor PA PA jmm Pena, Laura, RN RN lp1 Joyce Delgado am2 Sabiha Miranda RN RN ea
[2018-11-14 01:42] VITALS: TEMP 98.1
[2018-11-14 01:45] VITALS: BP 189/67; O2SAT 100
--- NOTE | 2018-11-14 08:09 | RAD REPORT ---
EXAM DESCRIPTION: RAD - Wrist Left 3 View - 11/13/2018 10:59 pm CLINICAL HISTORY: Nontraumatic left wrist pain COMPARISON: None. FINDINGS: No fracture is identified. There is no dislocation or periosteal reaction noted. No foreig n body or other soft tissue abnormality. IMPRESSION: Negative left wrist examination.
== END 2018-11-14 00:26 | disposition home or self-care (01) ==
LOC: ER 22:19
DX: S63.592A Other specified sprain of left wrist, initial encounter (principal); X50.0XXA Overexertion from strenuous movement or load, initial encounter; Y93.89 Activity, other specified; Y92.9 Unspecified place or not applicable
CPT/HCPCS: 96372; 99283

== ENCOUNTER 2019-05-25 20:37 | Emergency (ER) | payer OTHER ==
[2019-05-25] MEDS ORDERED: IBUPROFEN 400 MG TAB ONE (22:54)
[2019-05-25] MEDS ORDERED: ACETAMINOPHEN 325 MG TABLET ONE (22:54)
[2019-05-25] MEDS ORDERED: LIDOCAINE 1% MPF 5 ML VIAL ONE (23:34)
[2019-05-26] MEDS ORDERED: LIDOCAINE 1% MPF 5 ML VIAL ONE (00:37)
--- NOTE | 2019-05-26 00:53 | EDPHYS ---
Physician Documentation [facility] Name: Marnie Ordaz Age: 23 yrs Sex: Female : 1995 Arrival Date: 05/25/2019 Time: 20:39 Bed 27 Private MD: ED Physician Dion Esteves HPI: 05/25 23:00 This 23 yrs old Female presents to ER via Ambulatory with complaints of Thumb cp Injury. 23:00 The patient or guardian reports injury, pain. cp 23:00 The complaints affect the right thumbnail. Onset: The symptoms/episode began/occurred cp today. Patient reports partial avulsion of right thumbnail. 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 - Social history:: Smoking status: Patient/guardian denies using tobacco. - Ebola Screening: : Patient denies travel to an Ebola-affected area in the 21 days before illness onset. ROS: 23:05 Constitutional: Negative for fever. cp 23:05 MS/extremity: Positive for injury or acute deformity, of the right thumbnail. cp 23:05 All other systems are negative. Vital Signs: 21:26 BP 138 / 87; Pulse 87; Resp 18; Temp 98.3; Pulse Ox 98% on R/A; Weight 122.92 kg; aj1 Height 5 ft. 3 in. (160.02 cm); Pain 7/10; 05/26 01:15 BP 126 / 82; Pulse 82; Resp 16; Temp 98(O); Pulse Ox 99% on R/A; Pain 0/10; fc 05/25 21:26 Body Mass Index 48.01 (122.92 kg, 160.02 cm) aj MDM: 05/25 22:46 Patient medically screened. cp 05/25 22:48 Order name: XRAY Finger-Thumb RIGHT; Complete Time: 23:50 cp 05/26 23:50 Interpretation: Reviewed. cp 05/26 00:54 Order name: Dressing - Wound; Complete Time: 01:25 cp 05/26 00:54 Order name: Finger Splint; Complete Time: 01:25 cp Administered Medications: 23:04 Drug: Tylenol 650 mg Route: PO; mg2 05/26 00:29 Follow up: Response: No adverse reaction; Marked relief of symptoms mg2 05/25 23:05 Drug: Ibuprofen 800 mg Route: PO; mg2 05/26 00:29 Follow up: Response: No adverse reaction; Marked relief of symptoms mg2 00:30 Drug: Marcaine (0.5 %) 10 ml {Note: given by the provider.} Volume: 10 ml; Route: mg2 Infiltration; 00:30 Drug: Lidocaine (1 %) 10 ml {Note: given by the provider.} Volume: 5 ml; Route: mg2 Infiltration; Disposition: 05/26/19 00:53 Discharged to Home. Impression: Nail disorder, unspecified - avulsion of right thumbnail. - Condition is Stable. - Discharge Instructions: Fingernail or Toenail Removal, Adult, Fingernail or Toenail Removal, Care After. - Prescriptions for Keflex 500 mg Oral Capsule - take 1 capsule by ORAL route every 8 hours for 10 days; 30 capsule. Ibuprofen 800 mg Oral Tablet - take 1 tablet by ORAL route every 8 hours As needed take with food; 30 tablet. - Medication Reconciliation Form, Thank You Letter, Antibiotic Education, Prescription Opioid Use form. - Follow up: Private Physician; When: 10 - 14 days; Reason: Staple/Suture removal. - Problem is new. - Symptoms have improved. Addendum: 05/27/2019 02:03 Co-signature as Attending Physician, Dion Esteves MD I agree with the assessment and t w4 plan of care. Signatures: Dispatcher [employer] Jojo Clinton RN RN aj1 Fabi Corona RN RN fc Page, Corey, PA PA Dion Rocha MD MD tw4 Edmond Enriquez RN RN mg2 Corrections: (The following items were deleted from the chart) 05/26 01:25 00:53 05/26/2019 00:53 Discharged to Home. Impression: Nail disorder, unspecified - fc avulsion of right thumbnail. Condition is Stable. Forms are Medication Reconciliation Form, Thank You Letter, Antibiotic Education, Prescription Opioid Use. Follow up: Private Physician; When: 10 - 14 days; Reason: Staple/Suture removal. Problem is new. Symptoms have improved. cp
--- NOTE | 2019-05-26 00:53 | ER ---
Nurse's Notes [facility] Name: Marnie Ordaz Age: 23 yrs Sex: Female : 1995 Arrival Date: 05/25/2019 Time: 20:39 Bed 27 Private MD: Diagnosis: Nail disorder, unspecified-avulsion of right thumbnail Presentation: 05/25 21:24 Presenting complaint: Patient states: "I hit something about an hour and a half ago, aj1 and my thumb nail hit the wall and the nail ripped off, its just hanging. I got the bleeding to stop, but its very painful,". Transition of care: patient was not received from another setting of care. Onset of symptoms was May 25, 2019. Risk Assessment: Do you want to hurt yourself or someone else? Patient reports no desire to harm self or others. Initial Sepsis Screen: Does the patient meet any 2 criteria? No. Patient's initial sepsis screen is negative. Does the patient have a suspected source of infection? No. Patient's initial sepsis screen is negative. Care prior to arrival: None. 21:24 Method Of Arrival: Ambulatory aj 21:24 Acuity: [place]OR[place] 4 aj1 Triage Assessment: 21:26 General: Appears in no apparent distress. uncomfortable, Behavior is calm, cooperative, aj1 appropriate for age. Pain: Complains of pain in right thumbnail Pain currently is 7 out of 10 on a pain scale. Neuro: Level of Consciousness is awake, alert, obeys commands. Cardiovascular: Patient's skin is warm and dry. Respiratory: Airway is patent Respiratory effort is even, unlabored, Respiratory pattern is regular, symmetrical. Musculoskeletal: Range of motion: intact in all extremities. Injury Description: Patient hurt her thumb when she punched a wall. 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 - Social history:: Smoking status: Patient/guardian denies using tobacco. - Ebola Screening: : Patient denies travel to an Ebola-affected area in the 21 days before illness onset. Screenin:44 Abuse screen: Denies threats or abuse. Denies injuries from another. Nutritional mg2 screening: No deficits noted. Tuberculosis screening: No symptoms or risk factors identified. Fall Risk None identified. Assessment: 23:42 General: Appears in no apparent distress. comfortable, Behavior is calm, cooperative. mg2 Pain: Complains of pain in right thumbnail Pain does not radiate. Pain currently is 5 out of 10 on a pain scale. Quality of pain is described as aching, Pain began suddenly, Is intermittent. Neuro: Level of Consciousness is awake, alert, obeys commands, Oriented to person, place, time, situation. Cardiovascular: Capillary refill < 3 seconds Patient's skin is warm and dry. Respiratory: Airway is patent Respiratory effort is even, unlabored, Respiratory pattern is regular, symmetrical. GI: No signs and/or symptoms were reported involving the gastrointestinal system. : No signs and/or symptoms were reported regarding the genitourinary system. EENT: No signs and/or symptoms were reported regarding the EENT system. Derm: Skin is intact, is healthy with good turgor, Skin is pink, warm \\T\\ dry. normal. Musculoskeletal: Circulation, motion, and sensation intact. Capillary refill < 3 seconds, pain in the right thumb. 05/26 00:50 Reassessment: No changes from previously documented assessment. Patient is alert, fc oriented x 3, equal unlabored respirations, skin warm/dry/pink. Right thumb area cleaned and sutures intact. Pt is pending discharge. Vital Signs: 05/25 21:26 BP 138 / 87; Pulse 87; Resp 18; Temp 98.3; Pulse Ox 98% on R/A; Weight 122.92 kg; aj1 Height 5 ft. 3 in. (160.02 cm); Pain 7/10; 05/26 01:15 BP 126 / 82; Pulse 82; Resp 16; Temp 98(O); Pulse Ox 99% on R/A; Pain 0/10; fc 05/25 21:26 Body Mass Index 48.01 (122.92 kg, 160.02 cm) aj1 ED Course: 05/25 20:39 Patient arrived in ED. cl3 21:26 Triage completed. aj1 21:26 Arm band placed on Patient placed in waiting room, Patient notified of wait time aj1 Patient Patient states that she does not want a X-Ray of her hand at this time. 22:38 Alex Mahoney PA is PHCP. cp 22:38 Dion Esteves MD is Attending Physician. cp 22:49 Edmond Enriquez, RN is Primary Nurse. mg2 23:44 Patient has correct armband on for positive identification. mg2 23:44 Patient did not have IV access during this emergency room visit. mg2 05/26 01:00 No provider procedures requiring assistance completed. fc 01:08 XRAY Finger-Thumb RIGHT In Process Unspecified. EDMS 01:09 Dressings: Tube gauze X 1; right thumbnail. em1 Administered Medications: 05/25 23:04 Drug: Tylenol 650 mg Route: PO; mg2 05/26 00:29 Follow up: Response: No adverse reaction; Marked relief of symptoms mg2 05/25 23:05 Drug: Ibuprofen 800 mg Route: PO; mg2 05/26 00:29 Follow up: Response: No adverse reaction; Marked relief of symptoms mg2 00:30 Drug: Marcaine (0.5 %) 10 ml {Note: given by the provider.} Volume: 10 ml; Route: mg2 Infiltration; 00:30 Drug: Lidocaine (1 %) 10 ml {Note: given by the provider.} Volume: 5 ml; Route: mg2 Infiltration; Outcome: 00:53 Discharge ordered by . cp 01:16 Discharged to home ambulatory. fc 01:16 Condition: good 01:16 Discharge instructions given to patient, Instructed on discharge instructions, follow up and referral plans. medication usage, wound care, Demonstrated understanding of instructions, follow-up care, medications, wound care, Prescriptions given X 2. 01:25 Patient left the ED. fc Signatures: Dispatcher [employer] EDID Jojo Cardona RN RN aj1 Fabi Corona RN RN fc Martinez, Eric em1 Alex Mahoney PA PA cp Gardose, Michele, RN RN [facility] Josue Linares 3
[2019-05-26 05:44] VITALS: BP 126/82; TEMP 98; O2SAT 99
--- NOTE | 2019-05-26 09:55 | RAD REPORT ---
EXAM DESCRIPTION: RAD - Finger-Thumb Right - 05/26/2019 1:07 am CLINICAL HISTORY: PAIN, trauma to the right thumb COMPARISON: None. TECHNIQUE: A three-view right thumb examination performed. FINDINGS: No fracture, dislocation or periosteal reaction. No acute bone or joint finding. No air or foreign body in the soft tissues. IMPRESSION: No right thumb fracture.
== END 2019-05-26 01:25 | disposition home or self-care (01) ==
LOC: ER 20:37
DX: S61.101A Unspecified open wound of right thumb with damage to nail, initial encounter (principal); L60.9 Nail disorder, unspecified; W22.8XXA Striking against or struck by other objects, initial encounter; Y93.9 Activity, unspecified
CPT/HCPCS: 99283

== ENCOUNTER 2019-06-26 06:18 | Day surgery (SDC) | payer OTHER ==
[2019-06-20 13:48] LABS: Absolute Lymphocytes (CBC) 2.2 K/uL (0.7-4.9); Basophils % 1.1 % (0-1.3); Hematocrit 37.4 % (36.0-45.0); MPV 8.1 fL (7.6-11.3); RBC Red Blood Cell Count 4.25 M/uL (3.86-4.86)
[2019-06-20 13:51] LABS: Protime INR 1.04
[2019-06-26] MEDS ORDERED: PROPOFOL 200 MG/20 ML VIAL IV ONE (06:30)
[2019-06-26] MEDS ORDERED: dexAMETHasone 10 MG/ML VIAL ONE ×2 (06:30→07:16)
[2019-06-26] MEDS ORDERED: FENTANYL CITR 100 MCG/2 ML ONE (06:30)
[2019-06-26] MEDS ORDERED: MIDAZOLAM HCL 2 MG/2 ML INJ ONE (06:30)
[2019-06-26] MEDS ORDERED: ROCURONIUM 50 MG/5 ML VIAL IV ONE (06:31)
[2019-06-26] MEDS ORDERED: LIDOCAINE 2% MPF 5 ML VIAL ONE (06:31)
[2019-06-26] MEDS ORDERED: NS 0.9% VIAL 10 ML ONE ×2 (06:31→08:25)
[2019-06-26] MEDS ORDERED: ONDANSETRON 4 MG/2 ML VIAL ONE ×2 (06:32→10:55)
[2019-06-26 06:34] LABS: Specific Gravity 1.015 (1.005-1.030)
[2019-06-26] MEDS ORDERED: CEFAZOLIN/SWI 2gm 2 GM/20 ML SYR ONE (06:38)
[2019-06-26] MEDS ORDERED: Ringers Lactate 1,000 ML IV ONE ×2 (06:38→06:58)
[2019-06-26] MEDS ORDERED: ROPLVACAINE HCL 20 ML ONE ×2 (06:38→07:14)
[2019-06-26] MEDS ORDERED: EPINEPHRINE/PF 1 MG/ML AMP ONE (06:58)
[2019-06-26] MEDS ORDERED: KETAMINE HCL 500 MG/5 ML VIAL ONE (08:12)
[2019-06-26] MEDS ORDERED: KETOROLAC 30 MG/ML INJ ONE (08:12)
[2019-06-26] MEDS ORDERED: Phenylephrine HCl 10 MG/ML 1 ML VIAL ONE (08:25)
[2019-06-26] MEDS ORDERED: GLYCOPYRROLATE 0.2 MG/ML SYR ONE (09:11)
[2019-06-26] MEDS ORDERED: NEOSTIGMINE 1 MG/ML -5 ML ONE (09:12)
--- NOTE | 2019-06-26 09:44 | P.BOP ---
Preoperative diagnosis: right shoulder impingement syndrome, AC arthrosis Postoperative diagnosis: same Primary procedure: right shoulder arthroscopic subacromial decompression Secondary procedure: right shoulder open distal clavicle excision Complaint Investigator: NONE,NONE Estimated blood loss: 10 cc Specimen: none Findings: see dictation Anesthesia: General Complications: None Implants: none Fluids & blood products: per anesthesia record Transferred to: Recovery Room Condition: Good
[2019-06-26] MEDS ORDERED: ONDANSETRON 4 MG/2 ML VIAL IV ONE (10:50)
--- NOTE | 2019-06-26 11:46 | RAD REPORT ---
EXAM DESCRIPTION: RAD - Shoulder 1 View - 06/26/2019 11:23 am CLINICAL HISTORY: Right shoulder surgery FINDINGS: Frontal view of the right shoulder was obtained. No fracture or dislocation is seen. Distal right clavicular resection noted
[2019-06-26 12:13] VITALS: BP 108/61; O2SAT 97
[2019-06-26] MEDS ORDERED: PROMETHAZINE 25 MG/ML VIAL IV ONE (12:30)
[2019-06-26] MEDS ORDERED: PROMETHAZINE 25 MG/ML VIAL ONE (12:30)
[2019-06-26 13:05] VITALS: TEMP 97.5
--- NOTE | 2019-06-27 19:39 | OP ---
Date of Procedure: 06/26/2019 Surgeon: Charly Wong MD Preoperative Diagnoses: 1. Right shoulder impingement syndrome. 2. 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 Postoperative Diagnoses: 1. Right shoulder impingement syndrome. 2. 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 Procedure Performed: 1. Right shoulder subacromial decompression. 2. Right shoulder open distal clavicle excision. Anesthesia: General endotracheal. Fluids: Per Anesthesia record. Estimated Blood Loss: Less than 10 cc. Implants: None. Complications: None. Indication For Procedure: Marnie is a 23-year-old female who presented to my clinic with right shoulder pain and history of right shoulder AC separation. The patient failed conservative measures including corticosteroid injections. Her pain interfered with her activities of daily living. I discussed with the patient at length risks and benefits associated with operative and nonoperative treatment. She expressed understanding and elected to proceed with operative treatment. Description Of Procedure: After informed consent was obtained, the patient was identified in the preoperative holding area. The right upper extremity was marked. The patient was taken to PACU where she underwent an interscalene block performed by Anesthesia to the right upper extremity. She was then brought back to the operative room, transferred to the operating table in supine fashion and placed under general endotracheal anesthesia. She was then placed in the beach chair position with her extremities well padded. The right upper extremity was then examined. Patient had full range of motion. No instability noted. The right upper extremity was then prepped and draped in usual sterile fashion. A time-out was initiated. Correct patient and procedure were confirmed and identified. The patient did receive preoperative prophylactic antibiotics. Via the posterior portal position, a spinal needle was introduced into the glenohumeral joint and this shoulder joint was then injected with 30 cc of normal saline to distend the capsule. A posterior portal was created, an arthroscope was brought in via the posterior part of incision. An anterior portal was created under direct visualization and a cannula was placed. Diagnostic arthroscopy was performed. The patient was noted to have pristine cartilages of humeral head as well as glenoid surface. No significant tearing or fraying of the labrum. The superior labrum was found to be stable to probe and biceps anchor was also found to be stable with no signs of significant tenosynovitis or fraying. Extra-articular portion of biceps tendon was brought into shoulder joint. There was no significant erythema or damage to biceps tendon. Subscapularis, supraspinatus, undersurface of the supraspinatus were evaluated. There are no significant rotator cuff tear identified. There was no loose body found on the axillary pouch. The arthroscope was then brought into the subacromial space. Subacromial bursectomy was performed. Undersurface of the acromion was then debrided using a radiofrequency ablator. There was some spurring noted and decompression was performed using an arthroscopic bur. AC joint was then identified arthroscopically and soft tissue was debrided with the use of arthroscopic shaver and radiofrequency ablator. Preoperatively, it was noted to have bone fragment anterior to the distal clavicle and secondary to that it was elected to proceed with open distal clavicle excision. Arthroscopic instruments removed without complication. Next, approximately a 5 cm incision was made centered over the AC joint in line with the clavicle. Dissection was taken down to the AC joint and capsule was split and divided. The distal clavicle was then skeletonized with baby Jaquez retractors were placed on either side of anterior and posterior aspects of the distal clavicle and approximately 11 mm of distal clavicle was excised using a soft protecting deep structures with retractors at all times. The distal clavicle was then removed. The bony fragment was identified from the preoperative x-ray and excised using a 15 blade as well as rongeurs. The wound was then irrigated thoroughly with normal saline. Rasp was used to debride the end of distal clavicle to remove any sharp edges. The capsule was approximated using #1 Vicryl. Deep tissues approximated using 0 Vicryl, subcutaneous tissue was approximated using 2-0 Vicryl. Skin and portals were approximated using 3-0 Monocryl. Sterile dressings were applied. The patient was placed in a shoulder immobilizer, awakened, and transferred to PACU in stable condition. Postoperative Plan: She will be nonweightbearing of the right upper extremity. She will come to clinic later this week for wound check and dressing change. She will be begin PT 1-2 weeks postoperatively. LEXI/ELY Voice ID: [id number] Report ID: [id number] SOURAV
--- OUTSIDE RECORDS SUMMARY | 2019-07-01 00:17 | XMS REPORT ---
:1995 Author Organization [employer] Care Team Providers Name Role Phone Charly Wong Provider Role Unavailable Allergies No Known Allergies Problems Problem Type Condition Code Onset Dates Condition Status Problem Arthritis of right M19.011 Active acromioclavicular joint Problem Bipolar affective disorder, mixed F31.60 Active Problem Other chronic pain G89.29 Active Problem PCOS (polycystic ovarian syndrome) E28.2 Active Problem Depression with anxiety F41.8 Active Problem Elevated blood pressure reading R03.0 Active Problem Migraine without aura and with G43.001 Active status migrainosus, not intractable Medications No Known Medications Results No Known Results Summary Purpose [employer] Submission
--- OUTSIDE RECORDS SUMMARY | 2019-07-01 00:17 | XMS REPORT ---
:1995 Author Organization [employer] Care Team Providers Name Role Phone Charly Wong Provider Role Unavailable Allergies, Adverse Reactions, Alerts Substance Reaction Event Type Hydrocodone-Acetaminophen ITCHES Drug Allergy Problems Problem Type Condition Code Onset Dates Condition Status Assessment Pain in joint of right shoulder M25.511 Active Assessment Arthritis of right M19.011 Active acromioclavicular joint Assessment Incomplete tear of right rotator M75.111 Active cuff, unspecified whether traumatic Assessment Impingement syndrome of right M75.41 Active shoulder Problem Arthritis of right M19.011 Active acromioclavicular joint Problem Bipolar affective disorder, mixed F31.60 Active Problem Other chronic pain G89.29 Active Problem PCOS (polycystic ovarian syndrome) E28.2 Active Problem Depression with anxiety F41.8 Active Problem Elevated blood pressure reading R03.0 Active Problem Migraine without aura and with G43.001 Active status migrainosus, not intractable Medications Medication Code Code Instructions Start End Date Status Dosage System Date Tylenol (#4) NDC 0 60/300 oral po q Jun 24, Jul 24, Active take 1 with codeine 6 hrs prn pain 2018 2018 tablet Ibuprofen NDC 39543787737 200 MG Orally Active 1 tablet Three times a with food day or milk as needed Trileptal NDC 08200652737 600 MG Orally Mar 26, Active 1 tablet Twice a day 2018 Results No Known Results Summary Purpose [employer] Submission
== END 2019-06-26 12:50 | disposition home or self-care (01) ==
LOC: OR 06:18
PROVIDERS: ATTEND Orthopaedic Surgery Sports Medicine
PROC: 0PB90ZZ Excision of Right Clavicle, Open Approach (ICD-10-PCS; 2019-06-26)
PROC: 0RNJ4ZZ Release Right Shoulder Joint, Percutaneous Endoscopic Approach (ICD-10-PCS; principal; 2019-06-26 07:30)
DX: M19.111 Post-traumatic osteoarthritis, right shoulder (principal); M75.41 Impingement syndrome of right shoulder; F32.9 Major depressive disorder, single episode, unspecified; F41.9 Anxiety disorder, unspecified; F31.89 Other bipolar disorder; Z88.6 Allergy status to analgesic agent
CPT/HCPCS: 85025; 80048; 36415; 81025; 85610; 85730; 73020; 29822; 23120; J2704; J0171; J2550 ×2; J2370; J2250; J3010; J1100 ×2; J2795 ×2; J2710; J0690; J7120 ×2; J2405 ×3

== ENCOUNTER 2019-08-10 08:45 | Emergency (ER) | payer OTHER ==
--- OUTSIDE RECORDS SUMMARY | 2019-08-10 08:48 | XMS REPORT ---
[...] prn pain 2018 2018 tablet Ibuprofen NDC 55589344105 200 MG Orally Active 1 tablet Three times a with food day or milk as needed Trileptal NDC 29388170540 600 MG Orally Mar 26, Active 1 tablet Twice a day 2018 Results No Known Results Summary Purpose [employer] Submission
--- OUTSIDE RECORDS SUMMARY | 2019-08-10 08:48 | XMS REPORT ---
[...] prn pain 2018 2018 tablet Ibuprofen NDC 71441919821 200 MG Orally Active 1 tablet Three times a with food day or milk as needed Trileptal NDC 52769143834 600 MG Orally Mar 26, Active 1 tablet Twice a day 2018 Results No Known Results Summary Purpose [employer] Submission
--- OUTSIDE RECORDS SUMMARY | 2019-08-10 08:48 | XMS REPORT ---
[...] 6 hrs prn pain 2018 2018 tablet Trileptal NDC 69582572212 600 MG Orally Mar 26, Active 1 tablet Twice a day 2019 Ibuprofen NDC 73853131250 200 MG Orally Active 1 tablet Three times a with food day or milk as needed Results No Known Results Summary Purpose [employer] Submission
--- NOTE | 2019-08-10 09:03 | ER ---
Nurse's Notes [facility] Name: Marnie Ordaz Age: 23 yrs Sex: Female : 1995 Arrival Date: 08/10/2019 Time: 08:48 Bed 19 Private MD: Diagnosis: Otitis media, unspecified, left ear;Otitis externa Presentation: 08/10 08:52 Presenting complaint: Sharp left ear pain 10/10 x 2 days. Transition of care: patient hb was not received from another setting of care. Onset of symptoms was August 09, 2019. Risk Assessment: Do you want to hurt yourself or someone else? Patient reports no desire to harm self or others. Initial Sepsis Screen: Does the patient meet any 2 criteria? No. Patient's initial sepsis screen is negative. Does the patient have a suspected source of infection? No. Patient's initial sepsis screen is negative. Care prior to arrival: Medication(s) given: Motrin, at 0600. 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 - Social history:: Smoking status: Patient/guardian denies using tobacco. - Ebola Screening: : No symptoms or risks identified at this time. Screenin:10 Abuse screen: Denies threats or abuse. Denies injuries from another. Nutritional sg screening: No deficits noted. Tuberculosis screening: No symptoms or risk factors identified. Never had TB. Fall Risk None identified. Assessment: 09:00 General: Appears in no apparent distress. well groomed, well developed, well nourished, sg Behavior is calm, cooperative, appropriate for age. Pain: Complains of pain in left ear. Neuro: Level of Consciousness is awake, alert, obeys commands, Oriented to person, place, time, Medical Numerical Control Operator are equal bilaterally Moves all extremities. Gait is steady. Cardiovascular: Patient's skin is warm and dry. Chest pain is denied. Respiratory: Airway is patent Respiratory effort is even, unlabored, Respiratory pattern is regular, symmetrical, Breath sounds are clear Denies cough, shortness of breath labored breathing. GI: Abdomen is round non-distended, Reports tolerance of fluids, tolerance of food. : No signs and/or symptoms were reported regarding the genitourinary system. EENT: Ear canal clear on left ear and right ear. Derm: Skin is pink, warm \T\ dry. Musculoskeletal: Circulation, motion, and sensation intact. Range of motion: intact in all extremities. Vital Signs: 08:54 BP 168 / 88; Pulse 89; Resp 16; Temp 98.4(O); Pulse Ox 100% on R/A; Weight 122.47 kg; hb Height 5 ft. 3 in. (160.02 cm); Pain 10/10; 08:54 Body Mass Index 47.83 (122.47 kg, 160.02 cm) hb ED Course: 08:48 Patient arrived in ED. sg 08:51 Nadia Clayton FNP-C [facility]. snw 08:51 Calli Mitchell MD is Attending Physician. snw 08:53 Triage completed. hb 08:54 Arm band placed on. hb 08:58 Silver Gutiérrez, VIJAYA is Primary Nurse. sg 09:00 Patient has correct armband on for positive identification. Bed in low position. Call sg light in reach. Side rails up X2. Pulse ox on. NIBP on. 09:10 No provider procedures requiring assistance completed. Patient did not have IV access sg during this emergency room visit. Administered Medications: 09:09 Drug: TORadol 30 mg Route: IM; Site: left ventrogluteal; sg 09:09 Drug: Motrin Suspension 2 tsp Route: PO; sg 09:09 Drug: Decadron - Dexamethasone 10 mg Route: IVP; Site: Other; sg 09:09 Drug: Augmentin 875 mg Route: PO; sg 09:09 Drug: Cortisporin Drops 4 drops Route: Otic; Site: left ear; sg Outcome: 09:02 Discharge ordered by . snw 09:10 Discharged to home ambulatory. sg 09:10 Condition: good 09:10 Discharge instructions given to patient, Instructed on discharge instructions, follow up and referral plans. medication usage, safety practices, Demonstrated understanding of instructions, follow-up care, medications, Prescriptions given X 2. 09:21 Patient left the ED. sg Signatures: Silver Gutiérrez RN RN sg Nadia Clayton, CHEMICAL PROCESS ENGINEER-C CHEMICAL PROCESS ENGINEER-Csnw Dilia Miller RN RN hb
[2019-08-10] MEDS ORDERED: dexAMETHasone 10 MG/ML VIAL ONE (09:04)
[2019-08-10] MEDS ORDERED: NEOMY/POLY/HC 1% OTIC DROPS ONE (09:04)
[2019-08-10] MEDS ORDERED: IBUPROFEN 100 MG/5 ML UCUP ONE (09:04)
[2019-08-10] MEDS ORDERED: AMOX/K CLAV 875 MG TAB ONE (09:04)
--- NOTE | 2019-08-10 09:04 | EDPHYS ---
Physician Documentation [facility] Name: aMrnie Ordaz Age: 23 yrs Sex: Female : 1995 Arrival Date: 08/10/2019 Time: 08:48 Bed 19 Private MD: ED Physician Calli Mitchell HPI: 08/10 08:59 This 23 yrs old Female presents to ER via Ambulatory with complaints of Ear snw Pain. 08:59 The patient presents with a fullness, pain, tenderness. The complaints affect the left snw ear. Onset: The symptoms/episode began/occurred gradually, 3 day(s) ago, and became worse and became persistent. Associated signs and symptoms: The patient has no apparent associated signs or symptoms. Severity of symptoms: At their worst the symptoms were severe in the emergency department the symptoms are unchanged. The patient has not experienced similar symptoms in the past. It is unknown whether or not the patient has recently seen a physician. 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 - Social history:: Smoking status: Patient/guardian denies using tobacco. - Ebola Screening: : No symptoms or risks identified at this time. ROS: 08:59 Constitutional: Negative for fever, chills, and weight loss, Eyes: Negative for injury, snw pain, redness, and discharge, ENT: Negative for injury and discharge, severe left ear pain since , steadily worsening Exam: 08:57 Constitutional: This is a well developed, well nourished patient who is awake, alert, snw and in no acute distress. Head/Face: Normocephalic, atraumatic. Eyes: Pupils equal round and reactive to light, extra-ocular motions intact. Lids and lashes normal. Conjunctiva and sclera are non-icteric and not injected. Cornea within normal limits. Periorbital areas with no swelling, redness, or edema. Chest/axilla: Normal chest wall appearance and motion. Nontender with no deformity. No lesions are appreciated. Cardiovascular: Regular rate and rhythm with a normal S1 and S2. No gallops, murmurs, or rubs. Normal PMI, no JVD. No pulse deficits. Respiratory: Lungs have equal breath sounds bilaterally, clear to auscultation and percussion. No rales, rhonchi or wheezes noted. No increased work of breathing, no retractions or nasal flaring. Abdomen/GI: Soft, non-tender, with normal bowel sounds. No distension or tympany. No guarding or rebound. No evidence of tenderness throughout. Back: No spinal tenderness. No costovertebral tenderness. Full range of motion. Skin: Warm, dry with normal turgor. Normal color with no rashes, no lesions, and no evidence of cellulitis. MS/ Extremity: Pulses equal, no cyanosis. Neurovascular intact. Full, normal range of motion. Neuro: Awake and alert, GCS 15, oriented to person, place, time, and situation. Cranial nerves II-XII grossly intact. Motor strength 5/5 in all extremities. Sensory grossly intact. Cerebellar exam normal. Normal gait. Psych: Awake, alert, with orientation to person, place and time. Behavior, mood, and affect are within normal limits. 08:57 ENT: External ear(s): pain with movement, that is moderate, that is severe, of the left ear lobe, left ear canal and left mastoid area, Ear canal(s): erythema, swelling, that is moderate, of the left canal, TM's: not visable, left, Examination of the other ear shows no obvious abnormality, Nose: Mouth: Posterior pharynx: Voice: is normal. 08:57 Neck: Lymph nodes: lymphadenopathy is appreciated, anterior cervical nodes. Vital Signs: 08:54 BP 168 / 88; Pulse 89; Resp 16; Temp 98.4(O); Pulse Ox 100% on R/A; Weight 122.47 kg; hb Height 5 ft. 3 in. (160.02 cm); Pain 10/10; 08:54 Body Mass Index 47.83 (122.47 kg, 160.02 cm) hb MDM: 08:52 Patient medically screened. snw 09:03 Data reviewed: vital signs, nurses notes. Data interpreted: Pulse oximetry: on room snw air. Counseling: I had a detailed discussion with the patient and/or guardian regarding: the historical points, exam findings, and any diagnostic results supporting the discharge/admit diagnosis, the presence of at least one elevated blood pressure reading (>120/80) during this emergency department visit, the need for outpatient follow up, to return to the emergency department if symptoms worsen or persist or if there are any questions or concerns that arise at home. Response to treatment: the patient's symptoms have mildly improved after treatment. Special discussion: I have referred the patient to see his PCP for further evaluation of high blood pressure. Based on the history and exam findings, there is no indication for further emergent testing or inpatient evaluation. I discussed with the patient/guardian the need to see the ENT specialist for further evaluation of the symptoms. I discussed with the patient/guardian the need to see the primary care provider for further evaluation of the symptoms. Administered Medications: 09:09 Drug: TORadol 30 mg Route: IM; Site: left ventrogluteal; sg 09:09 Drug: Motrin Suspension 2 tsp Route: PO; sg 09:09 Drug: Decadron - Dexamethasone 10 mg Route: IVP; Site: Other; sg 09:09 Drug: Augmentin 875 mg Route: PO; sg 09:09 Drug: Cortisporin Drops 4 drops Route: Otic; Site: left ear; sg Disposition: 16:12 Co-signature as Attending Physician, Calli Mitchell MD. ma2 Disposition: 08/10/19 09:02 Discharged to Home. Impression: Otitis media, unspecified, left ear, Otitis externa. - Condition is Stable. - Discharge Instructions: Otitis Media, Adult, Otitis Externa. - Prescriptions for Augmentin 875- 125 mg Oral Tablet - take 1 tablet by ORAL route every 12 hours for 10 days; 20 tablet. Diclofenac Sodium 75 mg Oral Tablet Sustained Release - take 1 tablet by ORAL route 2 times per day; 30 tablet. Ciprodex 0.3- 0.1 % Otic Drops, Suspension - instill 4 drop by OTIC route every 12 hours for 7 days , for ears ONLY; 1 Container. - Medication Reconciliation Form, Thank You Letter, Antibiotic Education, Prescription Opioid Use form. - Follow up: Private Physician; When: 2 - 3 days; Reason: Recheck today's complaints, Continuance of care, Re-evaluation by your physician. Follow up: Emergency Department; When: As needed; Reason: Worsening of condition. Signatures: Silver Gutiérrez, RN RN Nadia Alejandra, SUNNY-C HAZARDOUS WASTE MATERIAL TECHNICIAN-Csnw Dilia Miller RN RN Calli Mitchell MD MD ma2 Corrections: (The following items were deleted from the chart) 09:21 09:02 08/10/2019 09:02 Discharged to Home. Impression: Otitis media, unspecified, left sg ear; Otitis externa. Condition is Stable. Forms are Medication Reconciliation Form, Thank You Letter, Antibiotic Education, Prescription Opioid Use. Follow up: Private Physician; When: 2 - 3 days; Reason: Recheck today's complaints, Continuance of care, Re-evaluation by your physician. Follow up: Emergency Department; When: As needed; Reason: Worsening of condition. snw
[2019-08-10] MEDS ORDERED: KETOROLAC 30 MG/ML INJ ONE (09:16)
[2019-08-10 16:11] VITALS: BP 168/88; TEMP 98.4; O2SAT 100
== END 2019-08-10 09:21 | disposition home or self-care (01) ==
LOC: ER 08:45
DX: H66.92 Otitis media, unspecified, left ear (principal); H60.92 Unspecified otitis externa, left ear
CPT/HCPCS: 96372; 96374; 99283; J1100

== ENCOUNTER 2019-09-22 11:46 | Emergency (ER) | payer OTHER ==
--- OUTSIDE RECORDS SUMMARY | 2019-09-22 11:49 | XMS REPORT ---
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
--- OUTSIDE RECORDS SUMMARY | 2019-09-22 11:49 | XMS REPORT ---
[...] prn pain 2018 2018 tablet Ibuprofen NDC 24833302447 200 MG Orally Active 1 tablet Three times a with food day or milk as needed Trileptal NDC 67061688251 600 MG Orally Mar 26, Active 1 tablet Twice a day 2018 Results No Known Results Summary Purpose [employer]Works Submission
--- OUTSIDE RECORDS SUMMARY | 2019-09-22 11:49 | XMS REPORT ---
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
--- OUTSIDE RECORDS SUMMARY | 2019-09-22 11:49 | XMS REPORT ---
[...] prn pain 2018 2018 tablet Trileptal NDC 70935756988 600 MG Orally Mar 26, Active 1 tablet Twice a day 2019 Ibuprofen NDC 47353603118 200 MG Orally Active 1 tablet Three times a with food day or milk as needed Results No Known Results Summary Purpose [employer]ClinicalWorks Submission
[2019-09-22] MEDS ORDERED: NA CHLORIDE 0.9% 1,000 ML ONE (12:29)
[2019-09-22 12:48] LABS: Basophils % 0.8 % (0-1.3); Hematocrit 37.6 % (36.0-45.0); Lymphocytes % 14.3 % (15.3-44.8); MPV 7.8 fL (7.6-11.3); RBC Red Blood Cell Count 4.31 M/uL (3.86-4.86)
[2019-09-22 12:52] LABS: Urine Blood 2+ (NEG); Urine Glucose NEGATIVE (NEG); Urine Protein 1+ (NEG); Urine Specific Gravity 1.025 (1.005-1.030); Urine pH 7.5 (5.0-7.0)
[2019-09-22 13:03] LABS: Albumin 3.7 g/dL (3.4-5.0); Bilirubin Total 0.4 mg/dL (0.2-1.0); Potassium 3.5 mmol/L (3.5-5.1); Protein, Total 8.2 g/dL (6.4-8.2)
[2019-09-22] MEDS ORDERED: AZITHROMYCIN 250 MG TAB ONE (13:10)
[2019-09-22] MEDS ORDERED: CEFTRIAXONE/SWI 1gm 1 GM/10 ML SYR ONE (13:10)
--- NOTE | 2019-09-22 13:56 | ER ---
Nurse's Notes [facility] Name: Marnie Ordaz Age: 24 yrs Sex: Female : 1995 Arrival Date: 09/22/2019 Time: 11:49 Bed 23 Private MD: Dao Pink Diagnosis: Acute upper respiratory infection, unspecified;Cough Presentation: 09/22 11:49 Presenting complaint: Patient states: "I started cough 3 weeks ago, I had a fever that aj1 went away but it came back and my lungs hurt and I feel like I'm not getting enough air in my nose and I haven't ate or drank since Monday, because I get the chills when I eat or drink". Transition of care: patient was not received from another setting of care. Onset of symptoms was August 2019. Risk Assessment: Do you want to hurt yourself or someone else? Patient reports no desire to harm self or others. Initial Sepsis Screen: Does the patient meet any 2 criteria? HR > 90 bpm. No. Patient's initial sepsis screen is negative. Does the patient have a suspected source of infection? Yes: Productive cough/pneumonia. Care prior to arrival: None. 11:49 Method Of Arrival: Ambulatory aj1 11:49 Acuity: [place]OR[place] 3 aj1 Triage Assessment: 11:53 General: Appears in no apparent distress. comfortable, Behavior is calm, cooperative, aj1 appropriate for age. Pain: Complains of pain in back. Neuro: Level of Consciousness is awake, alert, obeys commands. Cardiovascular: Patient's skin is warm and dry. Respiratory: Reports cough that is persistent Airway is patent Respiratory effort is even, unlabored, Respiratory pattern is regular, symmetrical, Onset: The symptoms/episode began/occurred 3 weeks ago, the patient has mild shortness of breath. 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 - Coronavirus screen:: The patient has NOT traveled to [place], [place], or [place] in the past 14 days. - Social history:: Smoking status: Patient/guardian denies using tobacco. - Family history:: not pertinent. - Ebola Screening: : Patient denies travel to an Ebola-affected area in the 21 days before illness onset. Screenin:59 Abuse screen: Denies threats or abuse. Denies injuries from another. Nutritional mg2 screening: No deficits noted. Tuberculosis screening: No symptoms or risk factors identified. Fall Risk None identified. Assessment: 11:59 General: Appears in no apparent distress. comfortable, Behavior is calm, cooperative. mg2 Pain: Denies pain. Neuro: Level of Consciousness is awake, alert, obeys commands, Oriented to person, place, time, situation. Cardiovascular: Capillary refill < 3 seconds Patient's skin is warm and dry. Respiratory: Airway is patent Respiratory effort is even, unlabored, Respiratory pattern is regular, symmetrical. GI: No signs and/or symptoms were reported involving the gastrointestinal system. : No signs and/or symptoms were reported regarding the genitourinary system. EENT: No signs and/or symptoms were reported regarding the EENT system. Derm: Skin is intact, is healthy with good turgor, Skin is pink, warm \\T\\ dry. normal. Musculoskeletal: Circulation, motion, and sensation intact. Capillary refill < 3 seconds. 13:52 Respiratory: Breath sounds are clear bilaterally. in mediastinum, right upper lobe, mg2 left upper lobe, right middle lobe, left lower lobe, right lower lobe, left posterior upper lobe, right posterior upper lobe, left posterior lower lobe, right posterior middle lobe and right posterior lower lobe. 13:52 Cardiovascular: Rhythm is sinus rhythm. mg2 Vital Signs: 11:53 BP 141 / 86; Pulse 106; Resp 20; Temp 98.1; Pulse Ox 97% on R/A; Weight 123.83 kg (R); aj1 Height 5 ft. 3 in. (160.02 cm) (R); Pain 6/10; 12:30 BP 135 / 78; Pulse 99; Resp 18; Temp 99.6(O); Pulse Ox 100% on R/A; mg2 13:53 Temp 98.6; mg2 11:53 Body Mass Index 48.36 (123.83 kg, 160.02 cm) aj1 ED Course: 11:49 Patient arrived in ED. mr 11:49 Dao Pink MD is Private Physician. mr 11:52 Triage completed. aj1 11:53 Edmond Enriquez, VIJAYA is Primary Nurse. mg2 11:53 Arm band placed on Patient placed in an exam room. aj1 12:00 Patient has correct armband on for positive identification. mg2 12:00 No provider procedures requiring assistance completed. mg2 12:01 Alex Biggs MD is Attending Physician. mian 12:35 Initial lab(s) drawn, by me, sent to lab. First set of blood cultures drawn by me, Flu lt1 and/or RSV swab sent to lab. 12:38 Inserted saline lock: 20 gauge in right antecubital area, using aseptic technique. lt1 12:39 Flu Sent. lt1 12:39 Comprehensive Metabolic Panel Sent. lt1 12:39 CBC with Diff Sent. lt1 13:09 Urine Culture Sent. lt1 13:50 Chest Pa And Lat (2 Views) XRAY In Process Unspecified. EDMS 13:55 Dao Pink MD is Referral Physician. mian 14:25 IV discontinued, intact, bleeding controlled, No redness/swelling at site. Pressure mg2 dressing applied. Administered Medications: 12:55 Drug: NS 0.9% 1000 ml Route: IV; Rate: 1 bolus; Site: right forearm; mg2 14:11 Follow up: Response: No adverse reaction; IV Status: Completed infusion; IV Intake: mg2 1000ml 13:26 Drug: Zithromax 500 mg Route: PO; mg2 14:04 Follow up: Response: No adverse reaction mg2 13:27 Drug: Rocephin 1 grams Route: IV; Rate: per protocol; Site: right antecubital; mg2 14:04 Follow up: Response: No adverse reaction; IV Status: Completed infusion mg2 14:08 Drug: Xopenex 1.25 mg Route: Inhalation; mg2 14:08 Drug: AtroVENT Aerosol 0.5 mg Route: Inhalation; mg2 Intake: 14:11 IV: 1000ml; Total: 1000ml. mg2 Outcome: 13:55 Discharge ordered by . mian 14:25 Discharged to home ambulatory. mg2 14:25 Condition: stable 14:25 Discharge instructions given to patient, Instructed on discharge instructions, follow up and referral plans. medication usage, Demonstrated understanding of instructions, follow-up care, medications, Prescriptions given X 3. 14:26 Patient left the ED. mg2 Signatures: Dispatcher [employer] EDJojo Espino RN RN aj1 Alex Biggs MD MD cha Rivera, Mary mr Edmond Enriquez, VIJAYA RN mg2 Teresita Santos 1 Corrections: (The following items were deleted from the chart) 12:32 12:00 Patient did not have IV access during this emergency room visit. mg2 mg2 13:54 12:30 Temp 98.6F; mg2 mg2
--- NOTE | 2019-09-22 13:56 | EDPHYS ---
Physician Documentation [facility] Name: Marnie Ordaz Age: 24 yrs Sex: Female : 1995 Arrival Date: 09/22/2019 Time: 11:49 Bed 23 Private MD: Dao Pink ED Physician Alex Biggs HPI: 09/22 12:43 This 24 yrs old Female presents to ER via Ambulatory with complaints of mian Cough, Shortness Of Breath, Fever. 12:43 The patient or guardian reports cough, that is intermittent. Onset: The mian symptoms/episode began/occurred 2 day(s) ago. Severity of symptoms: At their worst the symptoms were moderate. Modifying factors: The symptoms are alleviated by nothing. Associated signs and symptoms: The patient has no apparent associated signs or symptoms. The patient has not experienced similar symptoms in the past. ATTENDANT CHILD ACTIVITY: 11:53 LMP 09/22/2019 aj1 Historical: - Allergies: 11:53 No Known Allergies; aj1 - Home Meds: 11:53 Trileptal Oral [Active]; aj1 - PMHx: 11:53 Asthma; Bipolar disorder; aj1 - PSHx: 11:53 shoulder surgery; ; Cholecystectomy; Tubal ligation; aj1 - Immunization history:: Flu vaccine is not up to date. - Coronavirus screen:: The patient has NOT traveled to [place], [place], or [place] in the past 14 days. - Social history:: Smoking status: Patient/guardian denies using tobacco. - Family history:: not pertinent. - Ebola Screening: : Patient denies travel to an Ebola-affected area in the 21 days before illness onset. ROS: 12:43 Constitutional: Negative for fever, chills, and weight loss, Eyes: Negative for injury, mian pain, redness, and discharge, ENT: Negative for injury, pain, and discharge, Neck: Negative for injury, pain, and swelling, Cardiovascular: Negative for chest pain, palpitations, and edema, Abdomen/GI: Negative for abdominal pain, nausea, vomiting, diarrhea, and constipation, Back: Negative for injury and pain, : Negative for injury, bleeding, discharge, and swelling, MS/Extremity: Negative for injury and deformity, Skin: Negative for injury, rash, and discoloration, Neuro: Negative for headache, weakness, numbness, tingling, and seizure, Psych: Negative for depression, anxiety, suicide ideation, homicidal ideation, and hallucinations, Allergy/Immunology: Negative for hives, rash, and allergies, Endocrine: Negative for neck swelling, polydipsia, polyuria, polyphagia, and marked weight changes, Hematologic/Lymphatic: Negative for swollen nodes, abnormal bleeding, and unusual bruising. 12:43 Respiratory: Positive for cough, shortness of breath, at rest. Exam: 12:44 Constitutional: This is a well developed, well nourished patient who is awake, alert, mian and in no acute distress. Head/Face: Normocephalic, atraumatic. Eyes: Pupils equal round and reactive to light, extra-ocular motions intact. Lids and lashes normal. Conjunctiva and sclera are non-icteric and not injected. Cornea within normal limits. Periorbital areas with no swelling, redness, or edema. ENT: Nares patent. No nasal discharge, no septal abnormalities noted. Tympanic membranes are normal and external auditory canals are clear. Oropharynx with no redness, swelling, or masses, exudates, or evidence of obstruction, uvula midline. Mucous membranes moist. Neck: Trachea midline, no thyromegaly or masses palpated, and no cervical lymphadenopathy. Supple, full range of motion without nuchal rigidity, or vertebral point tenderness. No Meningismus. Chest/axilla: Normal chest wall appearance and motion. Nontender with no deformity. No lesions are appreciated. Cardiovascular: Regular rate and rhythm with a normal S1 and S2. No gallops, murmurs, or rubs. Normal PMI, no JVD. No pulse deficits. Abdomen/GI: Soft, non-tender, with normal bowel sounds. No distension or tympany. No guarding or rebound. No evidence of tenderness throughout. Back: No spinal tenderness. No costovertebral tenderness. Full range of motion. Skin: Warm, dry with normal turgor. Normal color with no rashes, no lesions, and no evidence of cellulitis. MS/ Extremity: Pulses equal, no cyanosis. Neurovascular intact. Full, normal range of motion. Neuro: Awake and alert, GCS 15, oriented to person, place, time, and situation. Cranial nerves II-XII grossly intact. Motor strength 5/5 in all extremities. Sensory grossly intact. Cerebellar exam normal. Normal gait. Psych: Awake, alert, with orientation to person, place and time. Behavior, mood, and affect are within normal limits. 12:44 Respiratory: the patient does not display signs of respiratory distress, Respirations: normal, no acute changes, Breath sounds: are clear throughout, Respiratory rate: 20 12:47 Musculoskeletal/extremity: DVT Exam: No signs of deep vein thrombosis. no pain, no mian swelling, no tenderness, negative Homans' sign noted on exam, no appreciated bluish discoloration, no erythema, no increased warmth. Vital Signs: 11:53 BP 141 / 86; Pulse 106; Resp 20; Temp 98.1; Pulse Ox 97% on R/A; Weight 123.83 kg (R); aj1 Height 5 ft. 3 in. (160.02 cm) (R); Pain 6/10; 12:30 BP 135 / 78; Pulse 99; Resp 18; Temp 99.6(O); Pulse Ox 100% on R/A; mg2 13:53 Temp 98.6; mg2 11:53 Body Mass Index 48.36 (123.83 kg, 160.02 cm) aj1 MDM: 12:01 Patient medically screened. [facility] 12:45 Data reviewed: vital signs, nurses notes, lab test result(s), radiologic studies, plain mian films. 09/22 12:18 Order name: CBC with Diff; Complete Time: 13:26 [facility] 09/22 12:18 Order name: Comprehensive Metabolic Panel; Complete Time: 13:26 [facility] 09/22 12:18 Order name: Blood Culture Adult (2) [facility] 09/22 12:18 Order name: Urine Culture [facility] 09/22 12:18 Order name: Flu; Complete Time: 13:26 [facility] 09/22 12:50 Order name: Urine Dipstick--Ancillary (enter results); Complete Time: 13:26 [facility] 09/22 12:18 Order name: Urine Dipstick-Ancillary (obtain specimen); Complete Time: 12:47 [facility] 09/22 12:50 Order name: Urine --Ancillary (enter results); Complete Time: 13:26 ga 09/22 13:26 Order name: Chest Pa And Lat (2 Views) XRAY mian Administered Medications: 12:55 Drug: NS 0.9% 1000 ml Route: IV; Rate: 1 bolus; Site: right forearm; mg2 14:11 Follow up: Response: No adverse reaction; IV Status: Completed infusion; IV Intake: mg2 1000ml 13:26 Drug: Zithromax 500 mg Route: PO; mg2 14:04 Follow up: Response: No adverse reaction mg2 13:27 Drug: Rocephin 1 grams Route: IV; Rate: per protocol; Site: right antecubital; mg2 14:04 Follow up: Response: No adverse reaction; IV Status: Completed infusion mg2 14:08 Drug: Xopenex 1.25 mg Route: Inhalation; mg2 14:08 Drug: AtroVENT Aerosol 0.5 mg Route: Inhalation; mg2 Disposition: 09/22/19 13:55 Discharged to Home. Impression: Acute upper respiratory infection, unspecified, Cough. - Condition is Fair. - Discharge Instructions: Upper Respiratory Infection, Adult, Upper Respiratory Infection, Adult, [id number], Cough, Adult, Pghg-[id number], Cough, Adult. - Prescriptions for Bromfed DM 2- 30-10 mg/5 mL Oral syrup - take 10 milliliter by ORAL route every 6 hours; 160 milliliter. Zithromax 500 mg Oral Tablet - take 1 tablet by ORAL route once daily for 5 days; 5 tablet. Albuterol Sulfate 90 mcg/actuation - inhale 1-2 puff by INHALATION route every 4-6 hours; 1 Inhaler. - Medication Reconciliation Form, Thank You Letter, Antibiotic Education, Prescription Opioid Use, Work release form form. - Follow up: Dao Pink; When: 2 - 3 days; Reason: Recheck today's complaints, Continuance of care, Re-evaluation by your physician. - Problem is new. - Symptoms have improved. Signatures: Dispatcher [employer] EDJojo Espino RN RN aj1 Alex Biggs MD MD cha Gardose, Michele, RN RN mg2 Corrections: (The following items were deleted from the chart) 14:26 13:55 09/22/2019 13:55 Discharged to Home. Impression: Acute upper respiratory mg2 infection, unspecified; Cough. Condition is Fair. Discharge Instructions: Upper Respiratory Infection, Adult, Upper Respiratory Infection, Adult, [id number], Cough, Adult, Yzto-[id number]-Hnuk, Cough, Adult. Prescriptions for Bromfed DM 2-30-10 mg/5 mL Oral syrup - take 10 milliliter by ORAL route every 6 hours; 160 milliliter, Zithromax 500 mg Oral Tablet - take 1 tablet by ORAL route once daily for 5 days; 5 tablet. and Forms are Medication Reconciliation Form, Thank You Letter, Antibiotic Education, Prescription Opioid Use. Follow up: Dao Pink; When: 2 - 3 days; Reason: Recheck today's complaints, Continuance of care, Re-evaluation by your physician. Problem is new. Symptoms have improved. mian
[2019-09-22] MEDS ORDERED: IPRATROPIUM BROM 0.5MG/2.5ML ONE (14:06)
[2019-09-22] MEDS ORDERED: LEVALBUTEROL 1.25 MG/3 ML NEB ONE (14:07)
--- NOTE | 2019-09-22 14:40 | RAD REPORT ---
EXAM DESCRIPTION: RAD - Chest Pa And Lat (2 Views) - 09/22/2019 1:51 pm CLINICAL HISTORY: COUGH COMPARISON: CHEST SINGLE VIEW dated 09/13/2014 TECHNIQUE: Frontal and lateral views of the chest were obtained. FINDINGS: The lungs are clear. Heart size is normal and central vasculature is within normal limit s. No pleural effusion or pneumothorax seen. No acute bony finding noted. No aortic abnormality. No significant change from comparison. IMPRESSION: No acute cardiopulmonary process.
[2019-09-22 14:58] VITALS: BP 135/78; O2SAT 100
[2019-09-22 14:59] VITALS: TEMP 98.6
== END 2019-09-22 14:26 | disposition home or self-care (01) ==
LOC: ER 11:46
DX: J06.9 Acute upper respiratory infection, unspecified (principal); F31.9 Bipolar disorder, unspecified
CPT/HCPCS: 96365; 96361; 87040 ×2; 87088; 85025; 87086; 36415; 81025; 81003; 80053; 87804 ×2; 71046; 99285; J0696; J7030

== ENCOUNTER 2024-06-23 12:44 | Emergency (ER) | payer SELFPAY ==
[2024-06-23] MEDS ORDERED: HYDROCODONE/APAP 5/325 MG TAB ONE (13:17)
[2024-06-23] MEDS ORDERED: ONDANSETRON 4 MG (ODT) TAB ONE (13:19)
--- NOTE | 2024-06-23 13:51 | RAD REPORT ---
EXAM: Foot Right 3 View HISTORY: fall/trauma;Pain COMPARISON: None FINDINGS: Bones: No acute fracture identified. Alignment:No significant malalignment. Degenerative changes:Plantar aspect calcaneal spurs. Other: n/a IMPRESSION: No evidence of acute osseous abnormality involving the imaged foot.
--- NOTE | 2024-06-23 13:51 | RAD REPORT ---
EXAM: 2 views of the 3 ankle HISTORY: Ankle pain COMPARISON: None FINDINGS: BONES: No acute fracture. Alignment within normal limits. DEGENERATIVE: Small calcaneal spurs. Other: n/a IMPRESSION: No evidence of acute osseous abnormality involving the imaged ankle.
--- NOTE | 2024-06-23 14:00 | EDPHYS ---
Physician Documentation [facility] Name: Marnie Davidson Age: 28 yrs Sex: Female : 1995 Arrival Date: 06/23/2024 Time: 12:44 Bed 14 Private MD: ED Physician Kenya Saleem HPI: 06/23 13:16 This 28 yrs old Female presents to ER via Wheelchair with complaints of Fall Injury, sp3 Ankle Injury, Foot Injury - right. 13:16 28-year-old female with a history of asthma, bipolar disease who presents with sp3 mechanical fall while coming down steps witnessed by family with chief complaint right foot and right ankle pain. It is painful to ambulate. Patient denies any secondary injury including head injury. No medical prodrome prior to the fall as corroborated by family. Review of systems otherwise negative.. Historical: - Allergies: 13:11 No Known Allergies; iw - Home Meds: 13:11 None [Active]; iw - PMHx: 13:11 Asthma; Bipolar disorder; iw - PSHx: 13:11 section; Cholecystectomy; Tonsillectomy; Adenoid excision; iw - Immunization history:: Adult Immunizations up to date. - Infectious Disease History:: Denies. - Social history:: Smoking status: Patient denies any tobacco usage or history of. ROS: 13:17 Constitutional: Negative for fever, chills, and weight loss, Eyes: Negative for injury, sp3 pain, redness, and discharge, Neck: Negative for injury, pain, and swelling, Cardiovascular: Negative for chest pain, palpitations, and edema, Respiratory: Negative for shortness of breath, cough, wheezing, and pleuritic chest pain, Abdomen/GI: Negative for abdominal pain, nausea, vomiting, diarrhea, and constipation, Back: Negative for injury and pain, Skin: Negative for injury, rash, and discoloration, Neuro: Negative for headache, weakness, numbness, tingling, and seizure, Psych: Negative for depression, anxiety, suicide ideation, homicidal ideation, and hallucinations, Allergy/Immunology: Negative for hives, rash, and allergies, Endocrine: Negative for neck swelling, polydipsia, polyuria, polyphagia, and marked weight changes, Hematologic/Lymphatic: Negative for swollen nodes, abnormal bleeding, and unusual bruising, 13:17 All other systems are negative, Exam: 13:18 Constitutional: This is a well developed, well nourished patient who is awake, alert, sp3 and in no acute distress. Head/Face: Normocephalic, atraumatic. Eyes: Pupils equal round and reactive to light, extra-ocular motions intact. Lids and lashes normal. Conjunctiva and sclera are non-icteric and not injected. Cornea within normal limits. Periorbital areas with no swelling, redness, or edema. Neck: Trachea midline, no thyromegaly or masses palpated, and no cervical lymphadenopathy. Supple, full range of motion without nuchal rigidity, or vertebral point tenderness. No Meningismus. Chest/axilla: Normal chest wall appearance and motion. Nontender with no deformity. No lesions are appreciated. Cardiovascular: Regular rate and rhythm with a normal S1 and S2. No gallops, murmurs, or rubs. Normal PMI, no JVD. No pulse deficits. Respiratory: Lungs have equal breath sounds bilaterally, clear to auscultation and percussion. No rales, rhonchi or wheezes noted. No increased work of breathing, no retractions or nasal flaring. Abdomen/GI: Soft, non-tender, with normal bowel sounds. No distension or tympany. No guarding or rebound. No evidence of tenderness throughout. Back: No spinal tenderness. No costovertebral tenderness. Full range of motion. Skin: Warm, dry with normal turgor. Normal color with no rashes, no lesions, and no evidence of cellulitis. Neuro: Awake and alert, GCS 15, oriented to person, place, time, and situation. Cranial nerves II-XII grossly intact. Motor strength 5/5 in all extremities. Sensory grossly intact. Cerebellar exam normal. Normal gait. Psych: Awake, alert, with orientation to person, place and time. Behavior, mood, and affect are within normal limits. 13:18 Musculoskeletal/extremity: Pain to palpation on the foot and ankle including lateral malleolus. Vascular exam is normal.. Vital Signs: 13:10 BP 136 / 92; Pulse 90; Resp 16; Temp 98.4; Pulse Ox 99% on R/A; Weight 116.57 kg; iw Height 5 ft. 3 in. ; Pain 8/10; 14:18 Pulse 80; Resp 18; Pulse Ox 100% on R/A; mb9 13:10 Body Mass Index 45.53 (116.57 kg, 160.02 cm) iw 13:10 Pain Scale: Adult iw MDM: 13:10 Medical Screening Exam initiated sp3 13:19 Data reviewed: vital signs, nurses notes, radiologic studies. ED course: Trauma to the 3 right foot and ankle with x-ray pending. Differential diagnosis fracture versus contusion versus sprain.. 13:59 ED course: X-ray is normal. Diagnosis will be sprain. David wrap will be applied and sp3 crutches given. Follow-up PCP as needed.. 06/23 13:11 Order name: Foot Right 3 View XRAY; Complete Time: 13:59 sp3 06/23 13:11 Order name: Ankle Right 3 View XRAY; Complete Time: 13:59 sp3 06/23 13:59 Order name: David Wrap; Complete Time: 14:07 sp3 06/23 13:59 Order name: Crutches; Complete Time: 14:07 sp3 Administered Medications: 13:23 Drug: HYDROcodone-acetaminophen PO 5 mg-325 mg 2 tabs PO once Route: PO; iw 13:43 Follow up: Response: No adverse reaction mb9 13:23 Drug: Ondansetron Oral Disintegrating Tablet Oral Disintegrating Tablet 4 mg PO once iw Route: PO; 13:43 Follow up: Response: No adverse reaction mb9 Disposition Summary: 06/23/24 14:00 Discharge Ordered Notes: Location: Home sp3 Condition: Stable sp3 Diagnosis - Ankle sprain right side sp3 Followup: sp3 - With: Private Physician - When: Upon discharge from the Emergency Department - Reason: Continuance of care Discharge Instructions: - Discharge Summary Sheet sp3 - Ankle Sprain sp3 Forms: - Medication Reconciliation Form sp3 - Antibiotic Education sp3 - Prescription Opioid Use sp3 - Patient Portal Instructions sp3 - Leadership Thank You Letter sp3 - Work release form mb9 Prescriptions: - Crutches - One pair of Adult crutches; ; Refills: 0, Product Selection Permitted sp3 - Tramadol 50 mg Oral Tablet - take 1 tablet ORAL route every 8 hours as needed; 12 tablet; Refills: 0, sp3 Product Selection Permitted Signatures: Dispatcher [employer] Yohana Hodge RN RN iw Patel, Setul, MD MD sp3 Laure Stringer RN mb9 Corrections: (The following items were deleted from the chart) 13: 13:11 Foot Right 3 View+RAD.RAD.BRZ ordered. EDMS EDMS 13: 13:11 Ankle Right 3 View+RAD.RAD.BRZ ordered. EDMS EDMS
--- NOTE | 2024-06-23 14:00 | ER ---
Nurse's Notes [facility] Name: Marnie Davidson Age: 28 yrs Sex: Female : 1995 Arrival Date: 06/23/2024 Time: 12:44 Bed 14 Private MD: Diagnosis: Ankle sprain right side Presentation: 06/23 13:10 Chief complaint: Right foot and ankle pain after fall down 2 steps 45 mins ago. iw Coronavirus screen: At this time, the client does not indicate any symptoms associated with coronavirus-19. Ebola Screen: No symptoms or risks identified at this time. Initial Sepsis Screen: Does the patient meet any 2 criteria? No. Patient's initial sepsis screen is negative. Does the patient have a suspected source of infection? No. Patient's initial sepsis screen is negative. Risk Assessment: Do you want to hurt yourself or someone else? Patient reports no desire to harm self or others. Onset of symptoms was June 23, 2024. 13:10 Method Of Arrival: Wheelchair iw 13:10 Acuity: [place] 4 iw Historical: - Allergies: 13:11 No Known Allergies; iw - Home Meds: 13:11 None [Active]; iw - PMHx: 13:11 Asthma; Bipolar disorder; iw - PSHx: 13:11 section; Cholecystectomy; Tonsillectomy; Adenoid excision; iw - Immunization history:: Adult Immunizations up to date. - Infectious Disease History:: Denies. - Social history:: Smoking status: Patient denies any tobacco usage or history of. Screenin:42 [facility] ED Fall Risk Assessment (Adult) History of falling in the last 3 months, mb9 including since admission Yes- single mechanical fall (1 pt) Confusion or Disorientation No (0 pts) Intoxicated or Sedated No (0 pts) Impaired Gait Yes (1 pt) Mobility Assist Device Used Yes (1 pt) Altered Elimination No (0 pt) Score/Fall Risk Level 3 or more points = High Risk Oriented to surroundings, Maintained a safe environment, Educated pt \T\ family on fall prevention, incl call for assistance when getting out of bed. Abuse screen: Denies threats or abuse. Nutritional screening: No deficits noted. Tuberculosis screening: No symptoms or risk factors identified. Assessment: 13:41 General: Appears in no apparent distress. Behavior is calm, cooperative. Pain: mb9 Complains of pain in right foot Pain radiates to right leg Pain currently is 8 out of 10 on a pain scale. Quality of pain is described as throbbing, Pain began suddenly, Is continuous. Neuro: Oshea Agitation-Sedation Scale (RASS): 0 - Alert and Calm Level of Consciousness is awake, alert, obeys commands, Oriented to person, place, time, situation, Appropriate for age. Cardiovascular: Patient's skin is warm and dry. Respiratory: Airway is patent Respiratory effort is even, unlabored, Respiratory pattern is regular, symmetrical. GI: No signs and/or symptoms were reported involving the gastrointestinal system. : No signs and/or symptoms were reported regarding the genitourinary system. EENT: No signs and/or symptoms were reported regarding the EENT system. Derm: Skin is pink, warm \T\ dry. Musculoskeletal: Range of motion: limited in right ankle. Vital Signs: 13:10 BP 136 / 92; Pulse 90; Resp 16; Temp 98.4; Pulse Ox 99% on R/A; Weight 116.57 kg; iw Height 5 ft. 3 in. ; Pain 8/10; 14:18 Pulse 80; Resp 18; Pulse Ox 100% on R/A; mb9 13:10 Body Mass Index 45.53 (116.57 kg, 160.02 cm) iw 13:10 Pain Scale: Adult iw ED Course: 12:46 Patient arrived in ED. ra3 13:06 Kenya Saleem MD is Attending Physician. sp3 13:11 Triage completed. iw 13:12 Arm band placed on. iw 13:23 Yohana Garibay, RN is Primary Nurse. iw 13:42 Bed in low position. Call light in reach. Side rails up X 1. Provided Education on: mb9 press call light if needing anything. Client placed on continuous cardiac and pulse oximetry monitoring. NIBP monitoring applied. 13:43 No provider procedures requiring assistance completed. mb9 13:44 Foot Right 3 View XRAY In Process Unspecified. EDMS 13:44 Ankle Right 3 View XRAY In Process Unspecified. EDMS 14:17 Patient did not have IV access during this emergency room visit. mb9 14:17 Crutch training done. David wrap to right ankle. mb9 Administered Medications: 13:23 Drug: HYDROcodone-acetaminophen PO 5 mg-325 mg 2 tabs PO once Route: PO; iw 13:43 Follow up: Response: No adverse reaction mb9 13:23 Drug: Ondansetron Oral Disintegrating Tablet Oral Disintegrating Tablet 4 mg PO once iw Route: PO; 13:43 Follow up: Response: No adverse reaction mb9 Medication: 13:43 VIS not applicable for this client. mb9 Outcome: 14:00 Discharge ordered by MD. benitez 14:18 Discharged to home ambulatory, with crutches, mb9 14:18 Condition: stable 14:18 Discharge instructions given to patient, Instructed on discharge instructions, follow up and referral plans. Demonstrated understanding of instructions, follow-up care, medications, Prescriptions given X 1, 14:18 Patient left the ED. mb9 Signatures: Dispatcher [employer] Yohana Hodge, Kenya Morgan RN, MD MD sp3 Laure Stringer RN RN mb9 Ijeoma Strong ra3
[2024-06-23 14:43] VITALS: BP 136/92; TEMP 98.4
[2024-06-23 14:44] VITALS: O2SAT 100
== END 2024-06-23 14:18 | disposition home or self-care (01) ==
LOC: ER 12:44
DX: S93.401A Sprain of unspecified ligament of right ankle, initial encounter (principal)
CPT/HCPCS: 99284; Q0162